=== PATIENT | female | born 1935 | race Caucasian/White ===

== ENCOUNTER 2020-08-15 14:54 | Inpatient (IN) | payer MEDICARE, OTHER, SELFPAY ==
[2020-08-15] VITALS (20 sets, daily range): BP systolic 88–127; BP diastolic 53–71; PULSE 111–126; RESP 16–32; TEMP 33.7–37.8; O2SAT 95–100; BMI 22.2
--- NOTE | 2020-08-15 15:07 | CTR_ITS ---
PROCEDURE INFORMATION: Exam: CT Head Without Contrast Exam date and time: 08/15/2020 3:14 PM Age: 85 years old Clinical indication: Altered mental status/memory loss; Confusion or disorientation; Patient HX: PT found in floor, unable to obtain history TECHNIQUE: Imaging protocol: Computed tomography of the head without contrast. Axial, coronal and sagittal reformatted images were created and reviewed. Radiation optimization: All CT scans at this facility use at least one of these dose optimization techniques: automated exposure control; mA and/or kV adjustment per patient size (includes targeted exams where dose is matched to clinical indication); or iterative reconstruction. COMPARISON: No relevant prior studies available. RADIATION DOSE METRICS: Total DLP (mGy-cm): 857.01 FINDINGS: Brain: Patchy areas of hypoattenuation in the periventricular and subcortical white matter, consistent with chronic small vessel ischemic disease. Focal, well-circumscribed hypodensity in the left basal ganglia, consistent with chronic lacunar infarction. No CT evidence of acute intracranial hemorrhage or acute territorial infarction. No significant mass effect or midline shift. Basal cisterns patent. Cerebral ventricles: Prominence of the cortical sulci, cisterns and ventricular system, consistent with cerebral and cerebellar volume loss. Bones/joints: No acute osseous abnormality. Paranasal sinuses: Minimal ethmoid and right sphenoid sinus mucosal thickening. Mastoid air cells: Grossly unremarkable. Vasculature: Calcific atherosclerotic disease in the cavernous internal carotid arteries, as well as the vertebro-basilar system. Soft tissues: Grossly unremarkable. CT/CT head wo con* [id number] IMPRESSION: 1. No CT evidence of acute intracranial pathology. 2. Additional findings, as above. Radiation Dose CTDIVOL = (mGy): DLP = 857.01 (mGy-cm)
--- NOTE | 2020-08-15 15:07 | XRR_ITS ---
PROCEDURE INFORMATION: Exam: XR Chest, 1 View Exam date and time: 08/15/2020 3:48 PM Age: 85 years old Clinical indication: Other: Confusion TECHNIQUE: Imaging protocol: XR of the chest Views: 1 view. COMPARISON: No relevant prior studies available. FINDINGS: Lungs: Unremarkable. No consolidation. Pleural space: Unremarkable. No pleural effusion. No pneumothorax. Heart/Mediastinum: Unremarkable. No cardiomegaly. Bones/joints: Unremarkable. XR/XR chest 1V portable [id number] IMPRESSION: No acute findings.
--- NOTE | 2020-08-15 15:07 | W.ED.AMS ---
HPI - Altered Mental Status General: Chief Complaint: Altered Mental Status Stated Complaint: FOUND ON FLOOR/ALOC Time Seen by Provider: 08/15/20 15:01 History of Present Illness: HPI narrative: 85 year old female in with confusion and high blood sugar. She was found on the floor of her residence by neighbors who check on her daily. She reportedly usually is ambulatory and independent. The accucheck read high. Neighbors reported yesterday she was in usual state of health. She is unable to give any history. MD complaint: altered mental status, confusion, decreased responsiveness and weakness Onset (ago): unknown Timing confirmed by: other (Neighbors) Severity: moderate Consistency of symptoms: Constant Context: unknown Associated symptoms: Reports no associated symptoms Treatments prior to arrival: glucose (HIGH) Review of Systems General: Reports: ROS unobtainable due to mental status Physical Exam Const: COMMON NORMALS: alert; negative for patient oriented x3 EXAM LIMITATIONS: altered mental status GENERAL APPEARANCE: frail appearing; not cooperative and not well kempt ORIENTATION/CONSCIOUSNESS: Yes awake and Yes confused HENMT: COMMON NORMALS: normocephalic HEAD & SCALP: normal to inspection and normocephalic MOUTH: Normal oral and palatal mucosa present Neck/C-Spine: COMMON NORMALS: no meningeal signs Chest: COMMONS NORMALS: normal inspection of the chest Resp: COMMON NORMALS: normal respiratory effort, No retractions and No use of accessory muscles Cardio: COMMON NORMALS: regular rate and regular rhythm RATE: regular rate RHYTHM: regular rhythm GI: COMMON NORMALS: Normal to inspection, nondistended, normoactive bowel sounds present AUSCULTATION: Yes normoactive bowel sounds : COMMON NORMALS: Yes no CVA tenderness BLADDER/KIDNEY EXAM: Yes no CVA tenderness Back/Pelvis: COMMON NORMALS: no CVA tenderness Neuro: COMMON NORMALS: moves all extremities; negative for patient oriented x3 SENSORIUM/ORIENTATION: Yes alert MENINGEAL SIGNS: Yes no meningeal signs Psych: APPEARANCE: No well kempt Skin: COMMON NORMALS: no rashes or lesions noted GENERAL SKIN EXAM: no rashes or lesions noted Course ED course: 85 year old female found down at home with marked elevation of blood sugars. Patient will need admitted to hospital. Will consult hospitalist. Patient with blood sugar >1000. Working on second liter of fluids and on IV insulin drip. Vital Signs: Vital signs: Vital Signs Temperature 94 F L 12/23/20 16:01 Pulse Rate 113 H 08/15/20 17:01 Respiratory Rate 22 H 08/15/20 17:01 Blood Pressure 127/63 08/15/20 17:01 Pulse Oximetry 96 08/15/20 17:01 MDM - Altered Mental Status MDM Narrative: Medical decision making narrative: 85 year old female in with confusion and high blood sugar after being found confused on the floor of her house with the duration of time unknown but probably less than 24-36 hours. The patient is unable to give any history. Will perform complete and thorough work up including labs and radiology. Serial re-examinations to be performed - push fluids for now. Lab Data: Labs: Lab Results 08/15/20 08/15/20 08/15/20 Range/Units 16:03 16:16 16:25 WBC 20.3 H (4.0-10.0) 10^3/ uL RBC 5.17 (4.1-5.3) 10^6/u L Hgb 15.6 H (11.5-15.3) g/dL Hct 52.9 H (37.0-47.0) % MCV 102.3 H (81-99) fL MCH 30.2 (28.0-34.0) pg MCHC 29.5 L (30.0-36.0) g/dL RDW 13.9 (12.1-15.1) % Plt Count 368 (130-400) 10^3/c mm MPV 11.3 H (7.4-10.4) fL Neut % (Auto) 84.7 % Lymph % (Auto) 6.0 % [place] % (Auto) 8.0 % Eos % (Auto) 0.0 % Baso % (Auto) 0.1 % Neut # (Auto) 17.16 H (1.8-7.7) 10^3/u L Lymph # (Auto) 1.2 (0.8-4.8) 10^3/u L [place] # (Auto) 1.6 H (0.2-0.9) 10^3/u L Eos # (Auto) 0.0 (0.0-0.8) 10^3/u L Baso # (Auto) 0.0 (0.0-0.1) 10^3/u L Nucleated RBC % (a uto) 0 % Nucleated RBCs # 0.0 /100WBC Sodium 143 (136-145) mmol/L Potassium 3.7 (3.5-5.1) mmol/L Chloride 98 (98-107) mmol/L Carbon Dioxide 7 L* (22-29) mmol/L Anion Gap 41.7 H (5-19) BUN 20 (8-23) mg/dL Creatinine 1.2 H (0.5-0.9) mg/dL GFR Calculation Not Reportable Glucose 1025 H* (65-115) mg/dL POC Glucose (70-110) mg/dL Calculated Osmolal ity 350 H (285-295) mOsm/k g Lactate (0.5-2.2) mmol/L Calcium 9.2 (8.5-10.5) mg/dL Total Bilirubin 0.2 (0.15-1.2) mg/dL AST 24 (0-32) U/L ALT 30 (0-33) U/L Alkaline Phosphata se 132 H (35-105) IU/L Creatine Kinase 183 (26-192) U/L Total Protein 7.7 (6.6-8.7) g/dL Albumin 3.7 (3.5-5.2) g/dL Globulin 4.0 (1.3-4.6) g/dL TSH 0.30 (0.27-4.20) uIU/ mL Urine Color Yellow (Yellow) Urine Appearance Hazy A (CLEAR) Urine pH 5 (5-7) Ur Specific Gravit y 1.020 (1.005-1.030) Urine Protein Trace (Negative) Urine Glucose (UA) 4+ H (Normal) Urine Ketones 3+ H (Negative) Urine Blood 3+ H (Negative) Urine Nitrate Negative (Negative) Urine Bilirubin Neg (Negative) Urine Urobilinogen Norm (Negative) mg/dL Ur Leukocyte Loulou ase 2+ H (Negative) Urine RBC 10-15 H (0-2) /hpf Urine WBC >100 H (0-5) /hpf Ur Squamous Epith Cells None (0-5) /hpf Amorphous Sediment Not Reportable Urine Bacteria 2+ H (NONE) /hpf Urine Yeast 3+ H /hpf Serum Ketones Positive H (Negative) 08/15/20 08/15/20 Range/Units 16:25 17:46 WBC (4.0-10.0) 10^3/ uL RBC (4.1-5.3) 10^6/u L Hgb (11.5-15.3) g/dL Hct (37.0-47.0) % MCV (81-99) fL MCH (28.0-34.0) pg MCHC (30.0-36.0) g/dL RDW (12.1-15.1) % Plt Count (130-400) 10^3/c mm MPV (7.4-10.4) fL Neut % (Auto) % Lymph % (Auto) % [place] % (Auto) % Eos % (Auto) % Baso % (Auto) % Neut # (Auto) (1.8-7.7) 10^3/u L Lymph # (Auto) (0.8-4.8) 10^3/u L [place] # (Auto) (0.2-0.9) 10^3/u L Eos # (Auto) (0.0-0.8) 10^3/u L Baso # (Auto) (0.0-0.1) 10^3/u L Nucleated RBC % (a uto) % Nucleated RBCs # /100WBC Sodium (136-145) mmol/L Potassium (3.5-5.1) mmol/L Chloride (98-107) mmol/L Carbon Dioxide (22-29) mmol/L Anion Gap (5-19) BUN (8-23) mg/dL Creatinine (0.5-0.9) mg/dL GFR Calculation Glucose (65-115) mg/dL POC Glucose > 600 H* (70-110) mg/dL Calculated Osmolal ity (285-295) mOsm/k g Lactate 3.5 H (0.5-2.2) mmol/L Calcium (8.5-10.5) mg/dL Total Bilirubin (0.15-1.2) mg/dL AST (0-32) U/L ALT (0-33) U/L Alkaline Phosphata se (35-105) IU/L Creatine Kinase (26-192) U/L Total Protein (6.6-8.7) g/dL Albumin (3.5-5.2) g/dL Globulin (1.3-4.6) g/dL TSH (0.27-4.20) uIU/ mL Urine Color (Yellow) Urine Appearance (CLEAR) Urine pH (5-7) Ur Specific Gravit y (1.005-1.030) Urine Protein (Negative) Urine Glucose (UA) (Normal) Urine Ketones (Negative) Urine Blood (Negative) Urine Nitrate (Negative) Urine Bilirubin (Negative) Urine Urobilinogen (Negative) mg/dL Ur Leukocyte Loulou ase (Negative) Urine RBC (0-2) /hpf Urine WBC (0-5) /hpf Ur Squamous Epith Cells (0-5) /hpf Amorphous Sediment Urine Bacteria (NONE) /hpf Urine Yeast /hpf Serum Ketones (Negative) Discharge Plan Discharge Patient Disposition: Admitted As Inpatient Clinical Impression: Delirium due to general medical condition, Hyperglycemic crisis due to diabetes mellitus Altered mental status Qualifiers: Altered mental status type: delirium Qualified Code(s): R41.0 - Disorientation, unspecified Condition: Stable Coding Level of Care Code ED [employer] Attendant for Javon Fwd Exam Comprehensive
--- NOTE | 2020-08-15 15:34 | PC.NURSE ---
Patient blood glucose is HI doctor has been notified. Cleaned patient and placed her into a gown. EKG done at 1530 and shown to ER doctor
--- NOTE | 2020-08-15 15:36 | PC.NURSE ---
Patient was brought in covered in dirt and animal hair. Patient was cleaned up by myself an another ED personnel. Patient vitals were obtained after clean up. Patient's temperature rectally was 92.3. Due to temperature warming blanket was applied to patient.
[2020-08-15 16:44] LABS: Basophils % 0.1 %; Hematocrit 52.9 % (37.0-47.0); Hemoglobin 15.6 g/dL (11.5-15.3); Lymphocytes # 1.2 10^3/uL (0.8-4.8); Mean Corpuscular HGB Conc 29.5 g/dL (30.0-36.0); Mean Corpuscular Hemoglobin 30.2 pg (28.0-34.0); Mean Corpuscular Volume 102.3 fL (81-99); Mean Platelet Volume 11.3 fL (7.4-10.4); Monocytes # 1.6 10^3/uL (0.2-0.9); Neutrophils # 17.16 10^3/uL (1.8-7.7); Neutrophils % 84.7 %; Nucleated Red Blood Cells % 0 %; Platelet Count 368 10^3/cmm (130-400); Red Blood Count 5.17 10^6/uL (4.1-5.3); Red Cell Distribution Width 13.9 % (12.1-15.1); White Blood Count 20.3 10^3/uL (4.0-10.0)
[2020-08-15 16:54] LABS: Ketone (Acetest) Serum Positive (Negative)
[2020-08-15 17:02] LABS: Lactate (Lactic Acid level) 3.5 mmol/L (0.5-2.2)
[2020-08-15 17:11] LABS: Alanine Aminotransferase 30 U/L (0-33); Albumin Level 3.7 g/dL (3.5-5.2); Alkaline Phosphatase 132 IU/L (35-105); Aspartate Amino Transferase 24 U/L (0-32); Blood Urea Nitrogen 20 mg/dL (8-23); Calcium 9.2 mg/dL (8.5-10.5); Chloride 98 mmol/L (98-107); Creatine Phosphokinase 183 U/L (26-192); Sodium 143 mmol/L (136-145); Total Bilirubin 0.2 mg/dL (0.15-1.2); Total Protein 7.7 g/dL (6.6-8.7)
[2020-08-15 17:15] LABS: Slide Review Slide Review Perform
[2020-08-15 17:20] LABS: Osmolality Calculated 350 mOsm/kg (285-295)
[2020-08-15 17:27] LABS: Add Urine Microscopic? YES; Bilirubin Urine Neg (Negative); Blood Urine 3+ (Negative); Glucose Urine UA 4+ (Normal); Ketones Urine 3+ (Negative); Leukocyte Esterase Urine 2+ (Negative); Nitrate Urine Negative (Negative); Protein Urine Trace (Negative); Urine Appearance Hazy (CLEAR); Urine Color Yellow (Yellow); Urobilinogen Urine Norm (Negative); WBC Urine >100 /hpf (0-5); pH Urine 5 (5-7)
[2020-08-15 17:28] LABS: Add Urine Culture? No; Bacteria Urine 2+ /hpf
[2020-08-15 17:48] LABS: Carbon Dioxide 7 mmol/L (22-29); Glucose 1025 mg/dL (65-115)
[2020-08-15 17:49] LABS: Anion Gap 41.7 (5-19); Potassium 3.7 mmol/L (3.5-5.1)
[2020-08-15 17:49] LABS: Glucose Point of Care > 600 mg/dL (70-110)
[2020-08-15] MEDS: sodium chloride 0.9% 1,000 ML 999 ML IV ×2 (17:50→19:32)
[2020-08-15] MEDS: insulin regular-human 250 UNIT in sodium chloride 0.9% 250 ML IV (17:54)
--- NOTE | 2020-08-15 18:20 | ECG_ITS ---
[facility] Test Date: 2020-08-15 Pat Name: JUAN LUIS HOLT Department: Room: Gender: Female Chief Dispatcher: : [id number] Requested By: Refugio Sanchez Order Number: [id number] Sky MD: Harry Rodriguez M.D. Measurements Intervals [place] Rate: 118 P: 69 RI: 183 QRS: -75 QRSD: 91 T: 210 QT: 385 QTc: 541 Interpretive Statements SINUS TACHYCARDIA PATTERN CONSISTENT WITH PULMONARY DISEASE INCOMPLETE RIGHT BUNDLE BRANCH BLOCK [90+ ms QRS DURATION, TERMINAL R IN V1/V2, 40+ ms S IN I/aVL/V4/V5/V6] LEFT ANTERIOR FASCICULAR BLOCK [QRS AXIS <= -45, QR IN I, RS IN II] ST DEVIATION AND MODERATE T-WAVE ABNORMALITY, CONSIDER ANTEROLATERAL ISCHEMIA [-0.1+ mV T WAVE IN V3-V6] ST DEVIATION AND MODERATE T-WAVE ABNORMALITY, CONSIDER INFERIOR ISCHEMIA [-0.1+ mV T WAVE IN II/aVF] No previous ECG available for comparison Electronically Signed On 08-15-2020 21:32:33 APIARIST by Harry Rodriguez M.D. [id number]
--- NOTE | 2020-08-15 18:34 | PM.HP ---
Providers/Chief Complaint Chief Complaint: FOUND ON FLOOR/ALOC History of Present Illness JUAN LUIS HOLT is a 85 year old female with unknown past medical history who was found by her neighbors in her house on the floor confused and lethargic. There was evidence of stool incontinence. When brought to emergency room the patient was unable to provide any history. She was found to have blood sugar level of over 1000. Hypothermic, leukocytosis. CT head did not show any acute findings. Chest x-ray was clear. However has evidence of urinary tract infection on UA. IV fluids are started. Bear hugger is started. The patient has a bag with her pills. All of them are supplements. No real medications. Apparently the patient lives alone and the neighbors occasionally check on her. It is unknown known how long the patient was down. During my evaluation the patient is morning. She is refusing my examination. Does not allow me to open her eyes. Does not allow me to examine her. She denies any pain. Does not provide any more history. Review of Systems General: Reports: ROS unobtainable due to mental status Medications/Allergies Home Medications Medication Instructions Recorded Confirmed Last Taken Type Unable to Assess 08/15/20 08/15/20 Unknown History Vitals/I&O/Wt Last Vital Signs Temp 94 F L 08/15/20 16:01 Pulse 113 H 08/15/20 17:01 Resp 22 H 08/15/20 17:01 BP 127/63 08/15/20 17:01 Pulse Ox 96 08/15/20 17:01 Weight last 48 hrs Weight 62.596 kg Physical Exam Narrative: EXAM NARRATIVE: The patient is comatose. Does not follow instructions. Minimal verbal response. Moderate distress. Skin is warm and dry. Dry mucous membranes Neck is supple. No JVD Lungs are clear. Mild tachypnea. Heart S1, S2, regular tachycardia Abdomen is soft, nontender, bowel sounds are present Extremities no edema cyanosis or calf tenderness bilaterally No facial asymmetry. She moves all of her extremities. Urinary Catheter Management^: Arizmendi: Cath Placed During This Visit: yes Urinary Catheter Date of Insertion: 08/15/20 Urinary Catheter Time of Insertion: 17:43 Data : 08/15/20 16:03 08/15/20 16:25 Other Labs: Laboratory Results WBC 20.3 10^3/uL (4.0-10.0) H 08/15/20 16:03 RBC 5.17 10^6/uL (4.1-5.3) 08/15/20 16:03 Hgb 15.6 g/dL (11.5-15.3) H 08/15/20 16:03 Hct 52.9 % (37.0-47.0) H 08/15/20 16:03 MCV 102.3 fL (81-99) H 08/15/20 16:03 MCH 30.2 pg (28.0-34.0) 08/15/20 16:03 MCHC 29.5 g/dL (30.0-36.0) L 08/15/20 16:03 RDW 13.9 % (12.1-15.1) 08/15/20 16:03 Plt Count 368 10^3/cmm (130-400) 08/15/20 16:03 MPV 11.3 fL (7.4-10.4) H 08/15/20 16:03 Neut % (Auto) 84.7 % 08/15/20 16:03 Lymph % (Auto) 6.0 % 08/15/20 16:03 [place] % (Auto) 8.0 % 08/15/20 16:03 Eos % (Auto) 0.0 % 08/15/20 16:03 Baso % (Auto) 0.1 % 08/15/20 16:03 Neut # (Auto) 17.16 10^3/uL (1.8-7.7) H 08/15/20 16:03 Lymph # (Auto) 1.2 10^3/uL (0.8-4.8) 08/15/20 16:03 [place] # (Auto) 1.6 10^3/uL (0.2-0.9) H 08/15/20 16:03 Eos # (Auto) 0.0 10^3/uL (0.0-0.8) 08/15/20 16:03 Baso # (Auto) 0.0 10^3/uL (0.0-0.1) 08/15/20 16:03 Nucleated RBC % (auto) 0 % 08/15/20 16:03 Nucleated RBCs # 0.0 /100WBC 08/15/20 16:03 Sodium 143 mmol/L (136-145) 08/15/20 16:25 Potassium 3.7 mmol/L (3.5-5.1) 08/15/20 16:25 Chloride 98 mmol/L (98-107) 08/15/20 16:25 Carbon Dioxide 7 mmol/L (22-29) L* 08/15/20 16:25 Anion Gap 41.7 (5-19) H 08/15/20 16:25 BUN 20 mg/dL (8-23) 08/15/20 16:25 Creatinine 1.2 mg/dL (0.5-0.9) H 08/15/20 16:25 GFR Calculation Not Reportable 08/15/20 16:25 Glucose 1025 mg/dL (65-115) H* 08/15/20 16:25 POC Glucose > 600 mg/dL (70-110) H* 08/15/20 17:46 Calculated Osmolality 350 mOsm/kg (285-295) H 08/15/20 16:25 Lactate 3.5 mmol/L (0.5-2.2) H 08/15/20 16:25 Calcium 9.2 mg/dL (8.5-10.5) 08/15/20 16:25 Total Bilirubin 0.2 mg/dL (0.15-1.2) 08/15/20 16:25 AST 24 U/L (0-32) 08/15/20 16:25 ALT 30 U/L (0-33) 08/15/20 16:25 Alkaline Phosphatase 132 IU/L (35-105) H 08/15/20 16:25 Creatine Kinase 183 U/L (26-192) 08/15/20 16:25 Total Protein 7.7 g/dL (6.6-8.7) 08/15/20 16:25 Albumin 3.7 g/dL (3.5-5.2) 08/15/20 16:25 Globulin 4.0 g/dL (1.3-4.6) 08/15/20 16:25 TSH 0.30 uIU/mL (0.27-4.20) 08/15/20 16:25 Urine Color Yellow (Yellow) 08/15/20 16:16 Urine Appearance Hazy (CLEAR) A 08/15/20 16:16 Urine pH 5 (5-7) 08/15/20 16:16 Ur Specific [place] 1.020 (1.005-1.030) 08/15/20 16:16 Urine Protein Trace (Negative) 08/15/20 16:16 Urine Glucose (UA) 4+ (Normal) H 08/15/20 16:16 Urine Ketones 3+ (Negative) H 08/15/20 16:16 Urine Blood 3+ (Negative) H 08/15/20 16:16 Urine Nitrate Negative (Negative) 08/15/20 16:16 Urine Bilirubin Neg (Negative) 08/15/20 16:16 Urine Urobilinogen Norm mg/dL (Negative) 08/15/20 16:16 Ur Leukocyte Esterase 2+ (Negative) H 08/15/20 16:16 Urine RBC 10-15 /hpf (0-2) H 08/15/20 16:16 Urine WBC >100 /hpf (0-5) H 08/15/20 16:16 Ur Squamous Epith Cells None /hpf (0-5) 08/15/20 16:16 Amorphous Sediment Not Reportable 08/15/20 16:16 Urine Bacteria 2+ /hpf (NONE) H 08/15/20 16:16 Urine Yeast 3+ /hpf H 08/15/20 16:16 Serum Ketones Positive (Negative) H 08/15/20 16:25 Impressions Chest X-Ray 08/15/20 15:07 IMPRESSION: No acute findings. Head CT 08/15/20 15:07 IMPRESSION: 1. No CT evidence of acute intracranial pathology. 2. Additional findings, as above. Radiation Dose CTDIVOL = (mGy): DLP = 857.01 (mGy-cm) Micro: Microbiology 08/15/20 16:03 Blood Culture - Preliminary Blood SPECIMEN COLLECTED 08/15/20 16:25 Blood Culture - Preliminary Blood SPECIMEN COLLECTED A&P Additional A&P Information 85-year-old female with unknown past medical history who is brought to emergency room due to altered mental status. She was found by her neighbors unresponsive on the floor. She has DKA, severe sepsis probably secondary to UTI with associated acute kidney injury. Acute metabolic encephalopathy secondary to #2 and 3. DKA. It is unknown if the patient has history of diabetes. However it does not seem that she takes any diabetes medications. She will be admitted to ICU. We will start aggressive IV fluid management and IV insulin drip. We will check her chemistry panel and magnesium level every 4 hours and adjust the fluids and electrolytes. Will need to be careful to monitor for any possible fluid overload. Severe sepsis probably secondary to UTI. Blood cultures are taken. Will order urine culture. We will start the patient on vancomycin and imipenem. We will adjust antibiotics based on the culture results. We will check her second lactic acid level. We will continue IV fluids. We will adjust the rate depending on vital signs, clinical changes and respiratory function. DVT prophylaxis. Heparin. GI prophylaxis famotidine. Critical care time spent on this encounter is 45 minutes Attestations Medical Necessity Statement*: The patient is being admitted in critical condition to ICU. I expect that she will spend more than 2 midnights in the hospital. Coding Level of Care Code Acute Accountant Supervisor for Javon Balderas
[2020-08-15 18:57] LABS: Albumin Level 3.7 g/dL (3.5-5.2); Blood Urea Nitrogen 20 mg/dL (8-23); Calcium 9.5 mg/dL (8.5-10.5); Chloride 97 mmol/L (98-107); Magnesium 2.8 mg/dL (1.7-2.3); Phosphorus 6.1 mg/dL (2.5-4.5); Sodium 141 mmol/L (136-145)
[2020-08-15 19:04] LABS: Anion Gap 43.9 (5-19); Carbon Dioxide 4 mmol/L (22-29); Potassium 3.9 mmol/L (3.5-5.1)
[2020-08-15 19:07] LABS: Glucose 962 mg/dL (65-115)
--- NOTE | 2020-08-15 19:17 | ECG_ITS ---
[facility] Test Date: 2020-08-15 Pat Name: JUAN LUIS HOLT Department: Room: 279 Gender: Female Paper Maker: : 1935 Requested By: Lukasz Mar Order Number: [id number] Sky MD: Harry Rodriguez M.D. Measurements Intervals [place] Rate: 113 P: 61 DE: 190 QRS: -78 QRSD: 92 T: 222 QT: 384 QTc: 528 Interpretive Statements SINUS TACHYCARDIA RIGHT ATRIAL ENLARGEMENT [0.3mV P WAVE] LEFT ATRIAL ENLARGEMENT [-0.15mV P WAVE IN V1/V2] PATTERN CONSISTENT WITH PULMONARY DISEASE INCOMPLETE RIGHT BUNDLE BRANCH BLOCK [90+ ms QRS DURATION, TERMINAL R IN V1/V2, 40+ ms S IN I/aVL/V4/V5/V6] LEFT ANTERIOR FASCICULAR BLOCK [QRS AXIS <= -45, QR IN I, RS IN II] ST DEVIATION AND MODERATE T-WAVE ABNORMALITY, CONSIDER ANTEROLATERAL ISCHEMIA [-0.1+ mV T WAVE IN V3-V6] ST DEVIATION AND MODERATE T-WAVE ABNORMALITY, CONSIDER INFERIOR ISCHEMIA [-0.1+ mV T WAVE IN II/aVF] No previous ECG available for comparison Electronically Signed On 08-15-2020 21:32:12 SHAMPOO ASSISTANT by Harry Rodriguez M.D. [id number]
[2020-08-15] MEDS: famotidine 20 mg/2 mL INJ IVP (19:32)
[2020-08-15] MEDS: heparin 5,000 unit/mL INJ 1 mL 5000 UNIT SUBCUT (19:33)
--- NOTE | 2020-08-15 19:40 | PC.NURSE ---
Attempt to call report. Loyd to Viviana reports that nurse Sivan is in room and will call back
[2020-08-15 21:56] LABS: Glucose Point of Care 468 mg/dL (70-110)
[2020-08-15 22:59] LABS: Glucose Point of Care > 600 mg/dL (70-110)
[2020-08-15 22:59] LABS: Glucose Point of Care 561 mg/dL (70-110)
[2020-08-15 23:26] LABS: Glucose Point of Care 318 mg/dL (70-110)
[2020-08-15] MEDS: potassium chloride premix 100 ML 25 MEQ IV (23:35)
[2020-08-15] MEDS: sodium bicarbonate 50 MEQ in sodium chloride 0.45% 1,000 ML 150 MEQ IV (23:36)
[2020-08-16] VITALS (170 sets, daily range): BP systolic 85–132; BP diastolic 48–87; PULSE 101–128; RESP 13–33; TEMP 36.8–37.9; O2SAT 93–98
[2020-08-16] MEDS: dextrose 5%-ns 0.45% + KCl 40 1,000 ML 100 MEQ IV (00:17)
[2020-08-16] MEDS: vancomycin 750 MG in sodium chloride 0.9% 250 ML 250 MG IV (00:49)
[2020-08-16 01:03] LABS: Albumin Level 3.1 g/dL (3.5-5.2); Anion Gap 20.6 (5-19); Blood Urea Nitrogen 18 mg/dL (8-23); Calcium 8.9 mg/dL (8.5-10.5); Carbon Dioxide 15 mmol/L (22-29); Chloride 120 mmol/L (98-107); Glucose 377 mg/dL (65-115); Magnesium 2.2 mg/dL (1.7-2.3); Osmolality Calculated 331 mOsm/kg (285-295); Phosphorus 1.1 mg/dL (2.5-4.5); Potassium 3.6 mmol/L (3.5-5.1); Sodium 152 mmol/L (136-145)
[2020-08-16 01:07] LABS: Glucose Point of Care 272 mg/dL (70-110)
[2020-08-16 01:07] LABS: Glucose Point of Care 298 mg/dL (70-110)
--- NOTE | 2020-08-16 01:38 | PC.NURSE ---
DEMPSEY Dempsey placed in ER. Time and details unknown, but dempsey is in place and draining tea colored urine.
[2020-08-16 02:25] LABS: Glucose Point of Care 261 mg/dL (70-110)
[2020-08-16 03:36] LABS: Glucose Point of Care 214 mg/dL (70-110)
--- NOTE | 2020-08-16 04:06 | PC.NURSE ---
ASSUMING CARE Report received from JENNIFER Ordaz in ED. Patient brought from ED by RN and accompanied by scribe and 1:1 sitter. Patient on insulin gtt at 8 units/hour and NS at 200 mL/hour. Patient not alert and oriented and attempting to punch and kick staff. Patient verbally redirected, but unable to comprehend direction. Patient came down on bear hugger for temp reported at 96.0. Temperature checked upon arrival and 99.0, so bear hugger removed. Patient given heparin and pepcid by ER nurse and last blood sugar reported at 561.
--- NOTE | 2020-08-16 04:12 | PC.NURSE ---
NEURO STATUS Patient continues to remain not alert and oriented to person, place, time, or situation. When interacting with patient, patient attempts to kick and hit. Dr. Vora gave order for nonviolent medical restraints shortly after patient arrived to unit. When interacting patient uses profanity and is still unable to be verbally redirected.
--- NOTE | 2020-08-16 04:14 | PC.NURSE ---
BLOOD SUGAR Per Dr. Vora, patient to be started on a one time 40 mEq K-rider, sodium bicarbonate 50 mEq at 150 mL/hour, and D51/2NS with 40 mEq of potassium at 100 mL/hour. Physician asked if lactic and ABG needed to be done, no orders at this time.
[2020-08-16 04:34] LABS: Glucose Point of Care 236 mg/dL (70-110)
--- NOTE | 2020-08-16 04:36 | PC.NURSE ---
EYE OPENING Patient has began to become more restless and has been opening eyes to voice/verbal commands at times.
[2020-08-16 05:00] LABS: Basophils # 0.1 10^3/uL (0.0-0.1); Basophils % 0.6 %; Eosinophils % 0.1 %; Hematocrit 42.9 % (37.0-47.0); Hemoglobin 14.1 g/dL (11.5-15.3); Lymphocytes # 1.1 10^3/uL (0.8-4.8); Mean Corpuscular HGB Conc 32.9 g/dL (30.0-36.0); Mean Corpuscular Hemoglobin 30.1 pg (28.0-34.0); Mean Corpuscular Volume 91.5 fL (81-99); Monocytes # 1.3 10^3/uL (0.2-0.9); Monocytes % 8.3 %; Neutrophils # 12.84 10^3/uL (1.8-7.7); Neutrophils % 83.4 %; Nucleated Red Blood Cells % 0 %; Platelet Count 350 10^3/cmm (130-400); Red Blood Count 4.69 10^6/uL (4.1-5.3); White Blood Count 15.4 10^3/uL (4.0-10.0)
[2020-08-16 05:33] LABS: Glucose Point of Care 165 mg/dL (70-110)
[2020-08-16 05:37] LABS: Albumin Level 3.3 g/dL (3.5-5.2); Anion Gap 15.8 (5-19); Blood Urea Nitrogen 17 mg/dL (8-23); Calcium 8.7 mg/dL (8.5-10.5); Carbon Dioxide 20 mmol/L (22-29); Chloride 122 mmol/L (98-107); Glucose 222 mg/dL (65-115); Osmolality Calculated 326 mOsm/kg (285-295); Potassium 3.8 mmol/L (3.5-5.1); Sodium 154 mmol/L (136-145)
[2020-08-16 06:05] LABS: Phosphorus 0.5 mg/dL (2.5-4.5)
[2020-08-16 06:31] LABS: Glucose Point of Care 139 mg/dL (70-110)
--- NOTE | 2020-08-16 06:40 | PC.NURSE ---
SHIFT SUMMARY Dr. Vora notified of anion gap closing at 15.8 and critical phosporus of 0.5. Physician put in order for ACHS accu checks, novolog with meals and at bedtime, 10 units lantus at bedtime with first dose now. Insulin gtt shut off per Dr. Vora, D5 1/2 NS with 40 K shut off and sodium bicarbonate shut off. NS started at 75 mL/hour. 1,000 mL dark tea colored urine output. Patient is more alert this morning, but still not oriented to anything, doesnt carry on conversations or follow commands yet. No open areas to body, redness to sacrum, bruise to right side of heard, bilateral bruising to eyes, and facial swelling. Head CT done in ER.
[2020-08-16] MEDS: insulin glargine 100 units/1 mL 10 UNIT SUBCUT ×2 (07:25→20:33)
[2020-08-16] MEDS: sodium chloride 0.9% 1,000 ML 75 ML IV (07:25)
[2020-08-16 07:34] LABS: Estmated Average Glucose 404; Hemoglobin A1C 15.7 % (4.0-6.0)
[2020-08-16 08:39] LABS: Glucose Point of Care 209 mg/dL (70-110)
[2020-08-16] MEDS: heparin 5,000 unit/mL INJ 1 mL 5000 UNIT SUBCUT ×2 (08:39→20:13)
[2020-08-16] MEDS: famotidine 20 mg/2 mL INJ IVP ×2 (08:39→20:13)
[2020-08-16 08:50] LABS: Albumin Level 2.9 g/dL (3.5-5.2); Anion Gap 16.3 (5-19); Blood Urea Nitrogen 16 mg/dL (8-23); Calcium 8.6 mg/dL (8.5-10.5); Carbon Dioxide 17 mmol/L (22-29); Chloride 121 mmol/L (98-107); Creatine Phosphokinase 178 U/L (26-192); Glucose 190 mg/dL (65-115); Osmolality Calculated 316 mOsm/kg (285-295); Phosphorus 1.5 mg/dL (2.5-4.5); Potassium 4.3 mmol/L (3.5-5.1); Sodium 150 mmol/L (136-145)
[2020-08-16 11:57] LABS: Glucose Point of Care 244 mg/dL (70-110)
--- NOTE | 2020-08-16 12:16 | P.PN_ITS ---
Subjective Subjective: Interval history: is still encephalopathic.Not answering questions for me. Anion gap is closed. She was transitioned to Lantus as well as sliding scale insulin. She is still remain tachycardic, has low-grade temperature ( 100.2). She has maintained a fairly good map on IV fluids, is currently saturating well on room air. Medications: Reviewed: Yes Vitals/I&O/Wt Last Vital Signs Temp 98.5 F 08/16/20 07:00 Pulse 113 H 08/16/20 12:00 Resp 20 H 08/16/20 12:00 BP 121/60 08/16/20 12:00 Pulse Ox 95 08/16/20 12:00 08/15/20 08/16/20 08/16/20 22:59 06:59 14:59 Intake Total 550 / 550 Output Total 1000 / 1000 Balance -450 / -450 Weight last 48 hrs Weight 51.573 kg Weight 62.596 kg Physical Exam 2 HENMT: COMMON NORMALS: normocephalic and atraumatic HEAD & SCALP: normocephalic and atraumatic Chest: COMMONS NORMALS: normal inspection of the chest CHEST: Yes Symmetrical chest wall rise Resp: COMMON NORMALS: normal respiratory effort, No retractions and clear to auscultation bilaterally EFFORT & INSPECTION: Yes symmetric chest movement AUSCULTATION: clear to auscultation bilaterally Cardio: COMMON NORMALS: regular rhythm, S1 normal heart sound present, S2 normal heart sound present and Peripheral pulses 2+ throughout RHYTHM: regular rhythm HEART SOUNDS: S1 normal heart sound present and S2 normal heart sound present PERIPHERAL PULSES: Peripheral pulses 2+ throughout OTHER: Sinus Tachycardia. GI: COMMON NORMALS: Normal to inspection, nondistended, normoactive bowel sounds present, Soft to palpation, non-tender, No hepatosplenomegaly present and no masses AUSCULTATION: Yes normoactive bowel sounds PALPATION: Yes Soft to palpation and Yes No hepatosplenomegaly present RECTAL EXAM: deferred Extremity: COMMON NORMALS: no clubbing, cyanosis or edema and no pedal edema Urinary Catheter Management^: Arizmendi: Cath Placed During This Visit: yes Reason for Continuing Indwelling Catheter: Accurate Measurement of Urinary Output in Critically Ill Patients Urinary Catheter Date of Insertion: 08/15/20 Urinary Catheter Time of Insertion: 17:43 Data : 08/16/20 04:17 08/16/20 16:00 Micro: Microbiology 08/15/20 16:03 Blood Culture - Preliminary Blood SPECIMEN COLLECTED 08/15/20 16:25 Blood Culture - Preliminary Blood SPECIMEN COLLECTED A&P Additional A&P Information 85-year-old female with unknown past medical history who is brought to emergency room due to altered mental status. She was found by her neighbors unresponsive on the floor. She has DKA, severe sepsis probably secondary to UTI with associated acute kidney injury. Acute metabolic encephalopathy secondary to #2 and 3. DKA. It is unknown if the patient has history of diabetes. However it does not seem that she takes any diabetes medications. She will be admitted to ICU. We will start aggressive IV fluid management and IV insulin drip. We will check her chemistry panel and magnesium level every 4 hours and adjust the fluids and electrolytes. Will need to be careful to monitor for any possible fluid overload. Severe sepsis probably secondary to UTI. Blood cultures are taken. Will order urine culture. We will start the patient on vancomycin and imipenem. We will adjust antibiotics based on the culture results. We will check her second lactic acid level. We will continue IV fluids. We will adjust the rate depending on vital signs, clinical changes and respiratory function. DVT prophylaxis. Heparin. GI prophylaxis famotidine. Critical care time spent on this encounter is 45 minutes Attestations Medical Necessity Statement*: Patient needs to be in hospital for the management of Ac metabolic encephalopathy as well as sepsis 2/2 to uti Coding Level of Care Code Acute [employer] for Javon Fwd Exam Detailed
[2020-08-16] MEDS: sodium chloride 0.45% 1,000 ML 100 ML IV (12:27)
[2020-08-16 14:10] LABS: SARS Covid-2 Antigen Negative (Negative)
[2020-08-16 16:33] LABS: Glucose Point of Care 191 mg/dL (70-110)
[2020-08-16 16:38] LABS: Anion Gap 14.7 (5-19); Blood Urea Nitrogen 16 mg/dL (8-23); Calcium 8.7 mg/dL (8.5-10.5); Carbon Dioxide 18 mmol/L (22-29); Chloride 125 mmol/L (98-107); Glucose 184 mg/dL (65-115); Osmolality Calculated 324 mOsm/kg (285-295); Potassium 3.7 mmol/L (3.5-5.1); Sodium 154 mmol/L (136-145)
[2020-08-16] MEDS: phosphorus 250 mg Tablet PO (17:25)
[2020-08-16] MEDS: sodium chloride 0.45% 1,000 ML 125 ML IV (20:12)
[2020-08-17] VITALS (93 sets, daily range): BP systolic 106–188; BP diastolic 50–105; PULSE 97–154; RESP 13–30; TEMP 36.5–36.9; O2SAT 85–96; BMI 19.4
[2020-08-17] MEDS: vancomycin 750 MG in sodium chloride 0.9% 250 ML 250 MG IV (00:37)
[2020-08-17] MEDS: sodium chloride 0.45% 1,000 ML 125 ML IV (06:07)
[2020-08-17 07:05] LABS: Anion Gap 17.3 (5-19); Blood Urea Nitrogen 11 mg/dL (8-23); Calcium 7.9 mg/dL (8.5-10.5); Carbon Dioxide 17 mmol/L (22-29); Chloride 112 mmol/L (98-107); Glucose 288 mg/dL (65-115); Osmolality Calculated 306 mOsm/kg (285-295); Potassium 3.3 mmol/L (3.5-5.1); Sodium 143 mmol/L (136-145)
[2020-08-17 07:16] LABS: Glucose Point of Care 247 mg/dL (70-110)
[2020-08-17] MEDS: famotidine 20 mg/2 mL INJ IVP ×2 (07:33→20:45)
[2020-08-17] MEDS: heparin 5,000 unit/mL INJ 1 mL 5000 UNIT SUBCUT ×2 (07:33→20:45)
[2020-08-17] MEDS: phosphorus 250 mg Tablet PO ×2 (08:17→17:26)
--- NOTE | 2020-08-17 09:47 | PC.CHAP ---
Pastoral Care Encounter/Spiritual Assessment Type of Contact [] Declined lumber scaler visit [] Patient/Family/Request visit [] Outpatient visit [] Follow-up visit [] Physician referral [] Code/Alert [] Routine visit [] Staff referral [] Actively dying [] Patient sleeping [] Family support [] [] Out of room [] Palliative care [] [] Receiving care in room [] Pre-surgical visit [] Trauma [] Long length of stay [x] ICU visit [] Other: Relational/Emotional Strength [] Patient feels connected with others/family/visitors/staff [] Distress [] Loneliness/isolation [] Abandonment Spirituality of Patient [] Person of Jeanine [] Attends Congregational of their Jeanine [] Believes in Prayer [] Reads Bible or Mu-Ism materials [] There are Spiritual issues to be addressed Air Conditioning [employer] Interventions [x] Prayer [] Active listening [] Non-anxious presence [] Spiritual/emotional support [] Crisis/trauma care [] Spiritual counseling [] Bereavement support [] Provided bereavement packet [] Provided Bible/devotional materials [] Provided toy/stuffed animal, coloring book to patient or family member [] Provided Communion [] Anointing/[place] [] Salvation [x] Completed spiritual assessment [] Other: Impact on Illness or Injury [] Angry [] Fearful [] Anxious [] Often cries [] Exhaustion [] Unable to work [] Unable to attend jehovah's witness [] Unable to walk/stand [] Unable to read [] Unable to drive [] Unable to eat/drink [] Unable to sleep [] Unable to be with family [] Patient intubated [] Other: Summary Time spent with patient
--- NOTE | 2020-08-17 10:56 | PC.NURSE ---
pt severely confused and agitated when attempting to put hose on .. left off at this time
[2020-08-17 11:59] LABS: Glucose Point of Care 251 mg/dL (70-110)
--- NOTE | 2020-08-17 12:03 | USCV_ITS ---
JUAN LUIS HOLT Age: 85 Gender: F : 1935 Exam Date: 08/17/2020 13:24 Ordering Phys: Jozef Boyd MD Technologist: Stephanie Vee Exam Location: [facility] – [place] Indication: CHEST TIGHTNESS BP: 157 / 70 HR: 112 Rhythm: Sinus Technical Quality: Adequate MEASUREMENTS (Male / Female) Normal Values 2D ECHO LV Diastolic Diameter PLAX 2.8 cm 4.2 - 5.9 / 3.9 - 5.3 cm LV Systolic Diameter PLAX 2.4 cm LV Chamber Size 3.0 cm IVS Diastolic Thickness 0.9 cm 0.6 - 1.0 / 0.6 - 0.9 cm IVS Systolic Thickness 1.3 cm LVPW Diastolic Thickness 1.1 cm 0.6 - 1.0 / 0.6 - 0.9 cm LVPW Systolic Thickness 1.6 cm RV Chamber Size 2.3 cm LVOT Diameter 2.0 cm LV Ejection Fraction 2D Teich 23.5 % LV Ejection Fraction MOD 2C 51.9 % LV Ejection Fraction 2C AL 52.1 % LA Diameter 3.1 cm LA Width 2.7 cm LA Height 2.8 cm RA Width 2.3 cm RA Height 2.9 cm Aorta at Sinotubular Diameter 2.7 cm M-MODE LV Diastolic Diameter MM 3.8 cm 4.2 - 5.9 / 3.9 - 5.3 cm LV Systolic Diameter MM 2.8 cm LV Ejection Fraction MM Teich 53.5 % IVS Diastolic Thickness MM 0.9 cm 0.6 - 1.0 / 0.6 - 0.9 cm IVS Systolic Thickness MM 1.3 cm LVPW Diastolic Thickness MM 0.8 cm 0.6 - 1.0 / 0.6 - 0.9 cm LVPW Systolic Thickness MM 1.4 cm RV Diastolic Diameter MM 1.2 cm Aortic Annulus Diameter 3.0 cm LA Ao Ratio MM 1.3 MV E Point Septal Separation 0.5 cm DOPPLER AV Peak Velocity 95.0 cm/s LVOT Peak Velocity 75.0 cm/s AV Area Cont Eq vti 1.7 cm squared AV Area Cont Eq pk 2.6 cm squared MV Area PHT 8.5 cm squared Mitral E to A Ratio 0.8 MV E' Velocity 46.0 cm/s Mitral E to MV E' Ratio 14.4 Mitral E to LV E' Lateral Ratio 11.5 Mitral E to LV E' Septal Ratio 19.3 TR Peak Velocity 100.0 cm/s TR Peak Gradient 4.0 mmHg TR Mean Velocity 131.0 cm/s TR Mean Gradient 7.6 mmHg TR Velocity Time Integral 43.0 cm TV Peak E Velocity 64.0 cm/s Right Atrial Pressure 3.0 mmHg Pulmonary Artery Systolic Pressu 7.0 mmHg PV Peak Velocity 57.0 cm/s RV Acceleration Time 0.3 s RV Ejection Time 0.5 s RV AcT/ET 0.6 FINDINGS Left Ventricle Limited quality study. Normal left ventricular size. Grossly LV systolic function is moderately reduced. Regional wall motion abnormalities cannot be assessed because of limited visualization. Grade 1 diastolic dysfunction is seen. Right Ventricle Grossly normal Right Atrium The right atrium is normal in size. Left Atrium The left atrium is normal in size. Mitral Valve Mitral annular calcification is seen. Mild mitral regurgitation is present. Aortic Valve Aortic valve is not well-visualized. No significant aortic regurgitation or stenosis is present. Tricuspid Valve Not well-visualized. Insufficient TR jet to calculate RVSP. Pulmonic Valve Not well-visualized. Pericardium Normal pericardium without effusion. Aorta Normal ascending aorta dimension. CONCLUSIONS This is a technically poor quality study. LV systolic function is grossly moderately reduced. Regional wall motion abnormalities cannot be assessed because of limited visualization. Grade 1 diastolic dysfunction is present. Valvular structures are not well visualized however no significant valvular abnormalities seen. Mild mitral regurgitation is noted. No comparison studies are available. Jeb Moser MD (Electronically Signed) Final Date: 17 August 2020 17:46 S
[2020-08-17] MEDS: lisinopril 20 mg Tablet PO (12:49)
[2020-08-17 17:06] LABS: Glucose Point of Care 263 mg/dL (70-110)
--- NOTE | 2020-08-17 18:35 | P.PN_ITS ---
Subjective Subjective: Interval history: is felling better.Upon further asking she is complaining of longstanding Chest tightness as well as SOB with minimal exertion. She deny any other complain. Vitals and labs have reviewed. Medications: Reviewed: Yes Vitals/I&O/Wt Last Vital Signs Temp 97.7 F 08/17/20 10:00 Pulse 104 H 08/17/20 18:00 Resp 26 H 08/17/20 18:00 BP 121/62 08/17/20 18:00 Pulse Ox 94 08/17/20 08:00 08/17/20 08/17/20 08/17/20 06:59 14:59 22:59 Intake Total 1600 / 4255 650 / 650 300 / 950 Output Total 400 / 900 1400 / 1400 900 / 2300 Balance 1200 / 3355 -750 / -750 -600 / -1350 Weight last 48 hrs Weight 54.573 kg Weight 51.573 kg Physical Exam Const: COMMON NORMALS: patient oriented x3 HENMT: COMMON NORMALS: normocephalic and atraumatic HEAD & SCALP: normocephalic and atraumatic Chest: CHEST: Yes Symmetrical chest wall rise Resp: COMMON NORMALS: normal respiratory effort and clear to auscultation bilaterally EFFORT & INSPECTION: Yes symmetric chest movement AUSCULT ATION: clear to auscultation bilaterally Cardio: COMMON NORMALS: regular rate, regular rhythm, S1 normal heart sound present, S2 normal heart sound present, No gallops present (Cardio), No murmurs present (Cardio), No rub (Cardio) and Peripheral pulses 2+ throughout RATE: regular rate RHYTHM: regular rhythm HEART SOUNDS: S1 normal heart sound present and S2 normal heart sound present PERIPHERAL PULSES: Peripheral pulses 2+ throughout OTHER: Sinus Tachycardia. GI: COMMON NORMALS: Normal to inspection, nondistended, normoactive bowel sounds present, Soft to palpation, non-tender, No hepatosplenomegaly present and no masses AUSCULTATION: Yes normoactive bowel sounds PALPATION: Yes Soft to palpation and Yes No hepatosplenomegaly present RECTAL EXAM: deferred Extremity: COMMON NORMALS: no clubbing, cyanosis or edema and no pedal edema Neuro: COMMON NORMALS: patient oriented x3 Urinary Catheter Management^: Arizmendi: Cath Placed During This Visit: yes Reason for Continuing Indwelling Catheter: Accurate Measurement of Urinary Output in Critically Ill Patients Urinary Catheter Date of Insertion: 08/15/20 Urinary Catheter Time of Insertion: 17:43 Data : 08/16/20 04:17 08/17/20 06:25 Micro: Microbiology 08/15/20 16:16 Urine Culture - Final Urine Catheterized 08/15/20 16:03 Blood Culture - Preliminary Blood NEGATIVE TO DATE 08/15/20 16:25 Blood Culture - Preliminary Blood NEGATIVE TO DATE A&P Additional A&P Information 85-year-old female with unknown past medical history who is brought to emergency room due to altered mental status. She was found by her neighbors unresponsive on the floor. She has DKA, severe sepsis probably secondary to UTI with assoc iated acute kidney injury. Acute metabolic encephalopathy secondary to #2 and 3.( Resolved ) DKA. ( Resolved ) It is unknown if the patient has history of diabetes. However it does not seem that she takes any diabetes medications. She will be admitted to ICU. We will start aggressive IV fluid management and IV insulin drip. We will check her chemistry panel and magnesium level every 4 hours and adjust the fluids and electrolytes. Will need to be careful to monitor for any possible fluid overload. Severe sepsis probably secondary to UTI. Blood cultures are taken. Will order urine culture. Initially on vancomycin and imipenem.Vancomcin was DC on 08/17 as initial prelim cultures have been negative. We will adjust antibiotics based on the culture results. Follow am lactic acid and procalctonin level. #SOB On exertion and chest tightness : 2D Echo: Bad quality study: LV systolic function is grossly moderately reduced. Regional wall motion abnormalities cannot be assessed because of limited visualization. Repaet Limited ECHO with Contrast DVT prophylaxis. Heparin. GI prophylaxis famotidine. Critical care time spent on this encounter is 45 minutes Attestations Medical Necessity Statement*: Patient needs be in hospital for the management of sepsis 2/2 UTI. Coding Level of Care Code Acute Surveyor [employer]graph[employer] for Javon Balderas
[2020-08-17] MEDS: insulin glargine 100 units/1 mL 10 UNIT SUBCUT (20:47)
[2020-08-17 20:56] LABS: Glucose Point of Care 131 mg/dL (70-110)
[2020-08-18] VITALS (23 sets, daily range): BP systolic 86–157; BP diastolic 47–86; PULSE 78–115; RESP 16–26; TEMP 37.1; O2SAT 92–99
[2020-08-18 05:33] LABS: Hematocrit 41.1 % (37.0-47.0); Hemoglobin 13.7 g/dL (11.5-15.3); Mean Corpuscular HGB Conc 33.3 g/dL (30.0-36.0); Mean Corpuscular Hemoglobin 30.2 pg (28.0-34.0); Mean Corpuscular Volume 90.5 fL (81-99); Mean Platelet Volume 10.6 fL (7.4-10.4); Platelet Count 267 10^3/cmm (130-400); Red Blood Count 4.54 10^6/uL (4.1-5.3); Red Cell Distribution Width 14.6 % (12.1-15.1)
[2020-08-18 06:04] LABS: Lactate (Lactic Acid level) 1.3 mmol/L (0.5-2.2)
[2020-08-18 06:10] LABS: Anion Gap 16.9 (5-19); Blood Urea Nitrogen 8 mg/dL (8-23); Calcium 7.9 mg/dL (8.5-10.5); Carbon Dioxide 22 mmol/L (22-29); Chloride 108 mmol/L (98-107); Glucose 235 mg/dL (65-115); Magnesium 1.7 mg/dL (1.7-2.3); Osmolality Calculated 304 mOsm/kg (285-295); Phosphorus 2.6 mg/dL (2.5-4.5); Sodium 144 mmol/L (136-145)
[2020-08-18 06:54] LABS: Potassium 2.9 mmol/L (3.5-5.1)
[2020-08-18 07:26] LABS: Glucose Point of Care 204 mg/dL (70-110)
[2020-08-18] MEDS: potassium chloride ER 20 mEq Tablet 80 MEQ PO (08:01)
[2020-08-18] MEDS: heparin 5,000 unit/mL INJ 1 mL 5000 UNIT SUBCUT (08:02)
[2020-08-18] MEDS: famotidine 20 mg/2 mL INJ IVP ×2 (08:02→21:27)
[2020-08-18 08:16] LABS: Absolute Eosinophils 0.1 10^3/cmm (0.0-0.7); Band Neutrophils Absolute 0.5 10^3/cmm (0.0-1.2); Eosinophils 1 %; Lymphocytes 10 %; Monocytes Absolute 0.4 10^3/cmm (0.1-0.6); Segmented Neutrophils 80 %; Total Cells Counted 100 (0-100)
[2020-08-18 08:17] LABS: Absolute Neutrophil 8.5 10^3/cmm (1.4-6.5); Platelet Estimate Normal (Normal)
[2020-08-18] MEDS: lisinopril 20 mg Tablet PO (08:33)
[2020-08-18] MEDS: phosphorus 250 mg Tablet PO (08:33)
--- NOTE | 2020-08-18 10:15 | PC.NURSE ---
incontinet of bm noted and denisha care done some confusion remains at this time up in bed am brk served
[2020-08-18 10:16] LABS: Troponin T (5th) Once 52 ng/L (0-10)
[2020-08-18 10:24] LABS: NT Pro B Type Natriuretic Pept 6706 pg/mL (0-450); Procalcitonin 0.28 ng/mL (0-0.5)
[2020-08-18 11:46] LABS: Glucose Point of Care 230 mg/dL (70-110)
[2020-08-18] MEDS: cefTRIAXone 1,000 MG in sodium chloride 0.9% (plus) 50 ML 100 MG IV (11:50)
--- NOTE | 2020-08-18 12:52 | DCPLANNER ---
IMM completed with pt on 08/18/20 @ [id number]. Copy of rights given to pt.
--- NOTE | 2020-08-18 14:13 | PM.PN ---
Subjective Subjective: Interval history: Patient is doing fine. She is tolerating diet well, she is more alert and awake,has good urine output blood pressure is better controlled. Deny any active complaint. Labs have been reviewed. Medications: Reviewed: Yes Vitals/I&O/Wt Last Vital Signs Temp 98.4 F 08/17/20 19:00 Pulse 97 08/18/20 14:00 Resp 23 H 08/18/20 14:00 BP 123/66 08/18/20 14:00 Pulse Ox 99 08/18/20 07:00 08/17/20 08/18/20 08/18/20 22:59 06:59 14:59 Intake Total 400 / 1150 800 / 800 Output Total 1650 / 3050 750 / 3800 Balance -1250 / -1900 -750 / -2650 800 / 800 Weight last 48 hrs Weight 54.431 kg Weight 54.573 kg Physical Exam Const: COMMON NORMALS: patient oriented x3 HENMT: COMMON NORMALS: normocephalic and atraumatic HEAD & SCALP: normocephalic and atraumatic Chest: CHEST: Yes Symmetrical chest wall rise Resp: COMMON NORMALS: normal respiratory effort and clear to auscultation bilaterally EFFORT & INSPECTION: Yes symmetric chest movement AUSCULTATION: clear to auscultation bilaterally Cardio: COMMON NORMALS: regular rate, regular rhythm, S1 normal heart sound present, S2 normal heart sound present, No gallops present (Cardio), No murmurs present (Cardio), No rub (Cardio) and Peripheral pulses 2+ throughout RATE: regular rate RHYTHM: regular rhythm HEART SOUNDS: S1 normal heart sound present and S2 normal heart sound present PERIPHERAL PULSES: Peripheral pulses 2+ throughout OTHER: Sinus Tachycardia. GI: COMMON NORMALS: Normal to inspection, nondistended, normoactive bowel sounds present, Soft to palpation, non-tender, No hepatosplenomegaly present and no masses AUSCULTATION: Yes normoactive bowel sounds PALPATION: Yes Soft to palpation and Yes No hepatosplenomegaly present RECTAL EXAM: deferred Extremity: COMMON NORMALS: no clubbing, cyanosis or edema and no pedal edema Neuro: COMMON NORMALS: patient oriented x3 Urinary Catheter Management^: Arizmendi: Cath Placed During This Visit: yes Reason for Continuing Indwelling Catheter: Accurate Measurement of Urinary Output in Critically Ill Patients Urinary Catheter Date of Insertion: 08/15/20 Urinary Catheter Time of Insertion: 17:43 Data : 08/18/20 04:55 08/18/20 04:55 Micro: Microbiology 08/15/20 16:16 Urine Culture - Final Urine Catheterized A&P Additional A&P Information 85-year-old female with unknown past medical history who is brought to emergency room due to altered mental status. She was found by her neighbors unresponsive on the floor. She has DKA, severe sepsis probably secondary to UTI with associated acute kidney injury. Acute metabolic encephalopathy secondary to #2 and 3.( Resolved ) DKA. ( Resolved ) It is unknown if the patient has history of diabetes. However it does not seem that she takes any diabetes medications. She will be admitted to ICU. We will start aggressive IV fluid management and IV insulin drip. We will check her chemistry panel and magnesium level every 4 hours and adjust the fluids and electrolytes. Will need to be careful to monitor for any possible fluid overload. Severe sepsis probably secondary to UTI. Blood cultures:Negative till date. urine culture: Negative procalctonin level.0.28 Lactic acid : 3.5--3--1.3 Initially on vancomycin and imipenem. Vancomcin was DC on 08/17 as initial prelim cultures have been negative. Imipeneam was discontinued on 08/18 Currently on ceftriaxone 1 gm q24h daily Hypokalemia : Serum K :2.8 .Received 80 MEQ kCL Today #SOB On exertion and chest tightness : 2D Echo: Bad quality study: LV systolic function is grossly moderately reduced. Regional wall motion abnormalities cannot be assessed because of limited visualization. Repaet Limited ECHO with Contrast. JIM :Resolved DVT prophylaxis. Lovenox 40 mg sc daily GI prophylaxis famotidine. Critical care time spent on this encounter is 45 minutes Attestations Medical Necessity Statement*: Patient needs to be in hospital for the management of sepsis 2/2 UTI. Coding Level of Care Code Acute Lean Manufacturing Coordinator for Javon Balderas
[2020-08-18] MEDS: perflutren protein-a microsphr 0.22 mg/mL SDV 3 mL IV (14:52)
[2020-08-18 16:39] LABS: Glucose Point of Care 178 mg/dL (70-110)
--- NOTE | 2020-08-18 18:39 | USCV_ITS ---
JUAN LUIS HOLT Age: 85 Gender: F : 1935 Exam Date: 08/18/2020 14:35 Ordering Phys: Jozef Boyd MD Technologist: Stephanie Vee [place] [facility] [place]: Worsening shortness of breath BP: 123 / 66 HR: Rhythm: Sinus Technical Quality: MEASUREMENTS (Male / Female) Normal Values 2D ECHO LV Ejection Fraction MOD 2C 50.1 % LV Ejection Fraction 2C AL 50.2 % FINDINGS Left Ventricle Echocardiogram performed to assess LV systolic function. LV systolic function is moderately reduced with EF of 35 to 40%. Mild to moderate global hypokinesis is present. No LV thrombus is present. Right Ventricle Right Atrium Left Atrium Mitral Valve Aortic Valve Tricuspid Valve Pulmonic Valve Pericardium Aorta CONCLUSIONS This is a limited echocardiogram with contrast to assess LV systolic function. LV systolic function is moderately reduced with EF of 35 to 40%. Mild to moderate global hypokinesis is present. No LV thrombus is seen. Compared to prior echocardiogram from 08/17/2020, no significant changes are noted. Jeb Moser MD (Electronically Signed) Final Date: 18 August 2020 16:09 S
[2020-08-18 21:00] LABS: Glucose Point of Care 195 mg/dL (70-110)
[2020-08-18] MEDS: insulin glargine 100 units/1 mL 15 UNIT SUBCUT (21:28)
[2020-08-19] VITALS (15 sets, daily range): BP systolic 91–147; BP diastolic 47–113; PULSE 79–108; RESP 17–26; TEMP 36.6–37.3; O2SAT 85–96
--- NOTE | 2020-08-19 03:49 | PC.NURSE ---
Patient awake and alert this morning. Speech is clear and appropriate. Patient able to tell me she had a fall at home which resulted in her coming to the hospital and was unconscious for a couple of days. Also stated, My blood sugar was real high and I had a real bad bladder infections. Patient reports not feeling real well yet and is still very weak. Patient denies pain. Refused to be repositioned at this time stating, I am very comfortable. No other distresses observed this morning.
[2020-08-19 04:44] LABS: Hematocrit 40.3 % (37.0-47.0); Hemoglobin 13.2 g/dL (11.5-15.3); Mean Corpuscular HGB Conc 32.8 g/dL (30.0-36.0); Mean Corpuscular Hemoglobin 29.9 pg (28.0-34.0); Mean Corpuscular Volume 91.4 fL (81-99); Platelet Count 241 10^3/cmm (130-400); Red Blood Count 4.41 10^6/uL (4.1-5.3); Red Cell Distribution Width 14.8 % (12.1-15.1); White Blood Count 12.2 10^3/uL (4.0-10.0)
[2020-08-19 05:13] LABS: Anion Gap 13.4 (5-19); Blood Urea Nitrogen 10 mg/dL (8-23); Calcium 8.5 mg/dL (8.5-10.5); Carbon Dioxide 24 mmol/L (22-29); Chloride 112 mmol/L (98-107); Glucose 158 mg/dL (65-115); Magnesium 1.9 mg/dL (1.7-2.3); Osmolality Calculated 304 mOsm/kg (285-295); Potassium 3.4 mmol/L (3.5-5.1); Sodium 146 mmol/L (136-145)
--- NOTE | 2020-08-19 07:02 | PC.NURSE ---
Patient reported to RN that she feels she lost quite a bit of weight over past couple of weeks noting her favorite pair of pants was about 2 sizes to big.
[2020-08-19 07:19] LABS: Glucose Point of Care 150 mg/dL (70-110)
[2020-08-19] MEDS: famotidine 20 mg/2 mL INJ IVP ×2 (08:03→20:32)
[2020-08-19] MEDS: lisinopril 20 mg Tablet PO (08:08)
[2020-08-19] MEDS: enoxaparin 40 mg/0.4 mL Syringe SUBCUT (08:08)
[2020-08-19 08:20] LABS: Absolute Eosinophils 0.2 10^3/cmm (0.0-0.7); Absolute Segmented Neutrophil 9.6 10/cmm (1.6-7.1); Band Neutrophils Absolute 0.4 10^3/cmm (0.0-1.2); Eosinophils 2 %; Lymphocytes 13 %; Monocytes Absolute 0.4 10^3/cmm (0.1-0.6); Platelet Estimate Normal (Normal); Segmented Neutrophils 79 %; Total Cells Counted 100 (0-100)
[2020-08-19 10:47] LABS: Glucose Point of Care 248 mg/dL (70-110)
[2020-08-19] MEDS: cefTRIAXone 1,000 MG in sodium chloride 0.9% (plus) 50 ML 100 MG IV ×2 (11:57→17:27)
--- NOTE | 2020-08-19 13:07 | P.PN_ITS ---
Subjective Subjective: Interval history: is doing fine.She is complaining of weakness as well as fatigue.Do complain of SOB with minimal exertion. Glycemic control is improving. She has remained afebrile other vitals have been reviewed. Labs reviewed. Medications: Reviewed: Yes Vitals/I&O/Wt Last Vital Signs Temp 99.1 F 08/19/20 12:00 Pulse 108 H 08/19/20 12:00 Resp 18 08/19/20 12:00 BP 117/87 08/19/20 12:00 Pulse Ox 93 08/19/20 12:00 08/18/20 08/19/20 08/19/20 22:59 06:59 14:59 Intake Total 450 / 1300 222 / 222 Output Total 600 / 600 450 / 1050 200 / 200 Balance -150 / 700 -450 / 250 Weight last 48 hrs Weight 53.116 kg Weight 54.431 kg Physical Exam Const: COMMON NORMALS: patient oriented x3 HENMT: COMMON NORMALS: normocephalic and atraumatic HEAD & SCALP: normoceph alic and atraumatic Chest: CHEST: Yes Symmetrical chest wall rise Resp: COMMON NORMALS: normal respiratory effort and clear to auscultation bilaterally AUSCULTATION: clear to auscultation bilaterally Cardio: COMMON NORMALS: regular rate, regular rhythm, S1 normal heart sound present and S2 normal heart sound present RATE: regular rate RHYTHM: regular rhythm HEART SOUNDS: S1 normal heart sound present and S2 normal heart sound present GI: COMMON NORMALS: Normal to inspection, nondistended, normoactive bowel sounds present, Soft to palpation, non-tender, No hepatosplenomegaly present and no masses AUSCULTATION: Yes normoactive bowel sounds PALPATION: Yes Soft to palpation and Yes No hepatosplenomegaly present RECTAL EXAM: deferred Extremity: COMMON NORMALS: no clubbing, cyanosis or edema and no pedal edema Neuro: COMMON NORMALS: patient oriented x3 Urinary Catheter Management^: Arizmendi: Cath Placed During This Visit: yes Reason for Continuing Indwelling Catheter: Accurate Measurement of Urinary Out put in Critically Ill Patients Urinary Catheter Date of Insertion: 08/15/20 Urinary Catheter Time of Insertion: 17:43 Data : 08/19/20 03:39 08/19/20 03:39 A&P Assessment and plan (1) Sepsis: Status: Acute (2) UTI (urinary tract infection): Status: Acute (3) Acute encephalopathy: Status: Acute (4) DKA (diabetic ketoacidoses): Status: Acute (5) Diabetes: Status: Acute (6) Hypokalemia: Status: Acute (7) JIM (acute kidney injury): Status: Acute (8) Heart failure: Status: Acute (9) Hypernatremia: Status: Acute Additional A&P Information 85-year-old female with unknown past medical history who is brought to emergency room due to altered mental status. She was found by her neighbors unresponsive on the floor. She has DKA, severe sepsis probably secondary to UTI with associated acute kidney injury. #Acute metabolic encephalopathy secondary to #2 and 3.( Resolved ) #DKA. ( Resolved ) It is unknown if the patient has history of diabetes. However it does not seem that she takes any diabetes medications. She will be admitted to ICU. We will start aggressive IV fluid management and IV insulin drip. We will check her chemistry panel and magnesium level every 4 hours and adjust the fluids and electrolytes. Will need to be careful to monitor for any possible fluid overload. # Uncontrolled DM: Lantus 15 U SC DAILY BEDTIME Aspart 7 Us Premeal LDSSI #Severe sepsis probably secondary to UTI. Blood cultures:Negative till date. urine culture: Negative procalctonin level.0.28 Lactic acid : 3.5--3--1.3 Initially on vancomycin and imipenem. Vancomcin was DC on 08/17 as initial prelim cultures have been negative. Imipeneam was discontinued on 08/18 Currently on ceftriaxone 1 gm q124h daily Hypokalemia : Serum K :2.8 .Received 80 MEQ kCL Today #SOB On exertion and chest tightness : 2D Echo: Bad quality study: LV systolic function is grossly moderately reduced. Regional wall motion abnormalities cannot be assessed because of limited visualization. Repaet Limited ECHO with Contrast.LV systolic function is moderately reduced with EF of 35 to 40%.Mild to moderate global hypokinesis is present. No LV thrombus is seen. Consult cardiology ( Outpatient V/S Inpatient ) JIM :Resolved DVT prophylaxis. Lovenox 40 mg sc daily GI prophylaxis famotidine. Critical care time spent on this encounter is 45 minutes Attestations Medical Necessity Statement*: Patient needs to be in hospital for the management of sepsis, UTI. Coding Level of Care Code Acute Premises Technician for Chg Fwd Diagnoses Sepsis A41.9 UTI (urinary tract infection) N39.0 Acute encephalopathy G93.40 DKA (diabetic ketoacidoses) E11.10 Diabetes E11.9 Hypokalemia E87.6 JIM (acute kidney injury) N17.9 Heart failure I50.9 Hypernatremia E87.0
[2020-08-19 16:49] LABS: Glucose Point of Care 219 mg/dL (70-110)
[2020-08-19 20:31] LABS: Glucose Point of Care 286 mg/dL (70-110)
[2020-08-19] MEDS: insulin glargine 100 units/1 mL 15 UNIT SUBCUT (20:33)
[2020-08-20] VITALS (13 sets, daily range): BP systolic 92–150; BP diastolic 64–88; PULSE 75–100; RESP 6–20; TEMP 36.7–36.9; O2SAT 95
[2020-08-20 06:48] LABS: Glucose Point of Care 166 mg/dL (70-110)
[2020-08-20] MEDS: famotidine 20 mg Tablet PO ×2 (08:22→17:49)
[2020-08-20] MEDS: enoxaparin 40 mg/0.4 mL Syringe SUBCUT (08:22)
[2020-08-20] MEDS: lisinopril 20 mg Tablet PO (08:22)
[2020-08-20] MEDS: cefTRIAXone 1,000 MG in sodium chloride 0.9% (plus) 50 ML 100 MG IV ×2 (08:22→17:49)
--- NOTE | 2020-08-20 09:15 | PC.SOCIAL ---
IMM Updated Updated pt on Pg 2 IMM. Provided pt a copy. No questions voiced. Signed, dated, & timed copy in chart.
[2020-08-20 11:35] LABS: Glucose Point of Care 318 mg/dL (70-110)
[2020-08-20 12:35] LABS: Hematocrit 41.2 % (37.0-47.0); Hemoglobin 13.3 g/dL (11.5-15.3); Mean Corpuscular HGB Conc 32.3 g/dL (30.0-36.0); Mean Corpuscular Hemoglobin 30.2 pg (28.0-34.0); Mean Corpuscular Volume 93.4 fL (81-99); Mean Platelet Volume 11.3 fL (7.4-10.4); Platelet Count 173 10^3/cmm (130-400); Red Blood Count 4.41 10^6/uL (4.1-5.3); Red Cell Distribution Width 14.6 % (12.1-15.1); White Blood Count 8.5 10^3/uL (4.0-10.0)
[2020-08-20 12:51] LABS: Absolute Eosinophils 0.1 10^3/cmm (0.0-0.7); Absolute Neutrophil 6.5 10^3/cmm (1.4-6.5); Absolute Segmented Neutrophil 6.4 10/cmm (1.6-7.1); Band Neutrophils Absolute 0.2 10^3/cmm (0.0-1.2); Eosinophils 2 %; Giant Platelets Trace; Lymphocytes 13 %; Monocytes Absolute 0.7 10^3/cmm (0.1-0.6); Platelet Estimate Normal (Normal); Segmented Neutrophils 75 %; Total Cells Counted 100 (0-100)
[2020-08-20 12:52] LABS: Anion Gap 15.9 (5-19); Blood Urea Nitrogen 8 mg/dL (8-23); Calcium 8.6 mg/dL (8.5-10.5); Carbon Dioxide 25 mmol/L (22-29); Chloride 100 mmol/L (98-107); Glucose 327 mg/dL (65-115); Magnesium 1.7 mg/dL (1.7-2.3); Osmolality Calculated 297 mOsm/kg (285-295); Phosphorus 2.8 mg/dL (2.5-4.5); Sodium 138 mmol/L (136-145)
[2020-08-20 12:55] LABS: Potassium 2.9 mmol/L (3.5-5.1)
--- NOTE | 2020-08-20 15:20 | P.PN_ITS ---
Subjective Subjective: Interval history: Ms. Ochoa is complaining of having a bad night, she was having difficulty with sleep. She was also complaining of stiff due to her longstanding RA. Which she has managed with traditional medications (currently she dont remember the name of those medicines ) Other than that she denies any other complaints. Vitals and labs have been reviewed. Medications: Reviewed: Yes Vitals/I&O/Wt Last Vital Signs Temp 98.5 F 08/20/20 13:44 Pulse 95 08/20/20 13:44 Resp 17 08/20/20 13:44 BP 92/64 08/20/20 13:44 Pulse Ox 95 08/20/20 01:25 08/20/20 08/20/20 08/20/20 06:59 14:59 22:59 Intake Total 0 / 682 530 / 530 Output Total 600 / 1200 Balance -600 / -518 530 / 530 Weight last 48 hrs Weight 53.116 kg Physical Exam HENMT: COMMON NORMALS: normocephalic and atraumatic HEAD & SCALP: normocephalic and atraumatic Chest: COMMONS NORMALS: normal inspection of the chest CHEST: Yes Symmetrical chest wall rise Resp: COMMON NORMALS: normal respiratory effort and clear to auscultation bilaterally EFFORT & INSPECTION: Yes symmetric chest movement AUSCULTATION: clear to auscultation bilaterally Cardio: COMMON NORMALS: regular rate, regular rhythm, S1 normal heart sound present, S2 normal heart sound present, No gallops present (Cardio), No murmurs present (Cardio), No rub (Cardio) and Peripheral pulses 2+ throughout RATE: regular rate RHYTHM: regular rhythm HEART SOUNDS: S1 normal heart sound present and S2 normal heart sound present PERIPHERAL PULSES: Peripheral pulses 2+ throughout OTHER: Sinus Tachycardia. Urinary Catheter Management^: Arizmendi: Cath Placed During This Visit: yes Reason for Continuing Indwelling Catheter: Accurate Measurement of Urinary Output in Critically Ill Patients Urinary Catheter Date of Insertion: 08/15/20 Urinary Catheter Time of Insertion: 17:43 Data : 08/20/20 12:18 08/20/20 12:18 A&P Assessment and plan (1) Sepsis: Status: Acute (2) UTI (urinary tract infection): Status: Acute (3) Acute encephalopathy: Status: Acute (4) DKA (diabetic ketoacidoses): Status: Acute (5) Diabetes: Status: Acute (6) Hypokalemia: Status: Acute (7) JIM (acute kidney injury): Status: Acute (8) Heart failure: Status: Acute (9) Hypernatremia: Status: Acute (10) Rheumatoid arthritis: Status: Acute Additional A&P Information 85-year-old female with unknown past medical history who is brought to emergency room due to altered mental status. She was found by her neighbors unresponsive on the floor. She has DKA, severe sepsis probably secondary to UTI with associated acute kidney injury. #Acute metabolic encephalopathy secondary to #2 and 3.( Resolved ) #DKA. ( Resolved ) It is unknown if the patient has history of diabetes. However it does not seem that she takes any diabetes medications. She will be admitted to ICU. We will start aggressive IV fluid management and IV insulin drip. We will check her c hemistry panel and magnesium level every 4 hours and adjust the fluids and electrolytes. Will need to be careful to monitor for any possible fluid overload. #Uncontrolled DM: Lantus 15 U SC DAILY BEDTIME Aspart 7 Us Premeal LDSSI. Had detailed discussion with the patient regarding Diabates management upon discharge. Provided her the information regarding Endocrine Service here at [facility]. She will provide us a name of a physician near her home.Who can manage her Diabetes as well as will serve as her PCP.She also wants to be discharged on oral Hypoglycemic medications. #Severe sepsis secondary to UTI. Blood cultures:Negative till date. urine culture: Negative procalctonin level.0.28 Lactic acid : 3.5--3--1.3 Initially on vancomycin and imipenem. Vancomcin was DC on 08/17 as initial prelim cultures have been negative. Imipeneam was discontinued on 08/18 Currently on ceftriaxone 1 gm q124h daily Hypokelemia :Monitor Serum K and Correct. #SOB On exertion and chest tightness : 2D Echo: Bad quality study: LV systolic function is grossly moderately reduced. Regional wall motion abnormalities cannot be assessed because of limited visualization. Repaet Limited ECHO with Contrast.LV systolic function is moderately reduced with EF of 35 to 40%.Mild to moderate global hypokinesis is present. No LV thrombus is seen. Consult cardiology ( Outpatient V/S Inpatient ) JIM :Resolved Physical deconditioning : PT / OT on board. DVT prophylaxis. Lovenox 40 mg sc daily GI prophylaxis famotidine. Code Status :Full code Disposition : Home Anticipated DC in 2 days Attestations Medical Necessity Statement*: Patient needs to be in hospital for the management UTI, Physical deconditioning, Coding Level of Care Code Acute Ball Assembler for Chg Fwd Exam Expanded Problem Focused Diagnoses Sepsis A41.9 UTI (urinary tract infection) N39.0 Acute encephalopathy G93.40 DKA (diabetic ketoacidoses) E11.10 Diabetes E11.9 Hypokalemia E87.6 JIM (acute kidney injury) N17.9 Heart failure I50.9 Hypernatremia E87.0 Rheumatoid arthritis M06.9
--- NOTE | 2020-08-20 17:12 | PC.NURSE ---
telephone instruction received from Dr Boyd to give 40 meq PO potassium chloride
[2020-08-20 17:20] LABS: Glucose Point of Care 217 mg/dL (70-110)
[2020-08-20] MEDS: potassium chloride ER 20 mEq Tablet 40 MEQ PO (17:49)
[2020-08-20 20:19] LABS: Glucose Point of Care 252 mg/dL (70-110)
[2020-08-20] MEDS: insulin glargine 100 units/1 mL 15 UNIT SUBCUT (21:00)
[2020-08-21] VITALS (11 sets, daily range): BP systolic 113–145; BP diastolic 57–72; PULSE 86–102; RESP 9–18; TEMP 36.1–36.8; O2SAT 92–97
[2020-08-21 06:36] LABS: Glucose Point of Care 196 mg/dL (70-110)
[2020-08-21] MEDS: famotidine 20 mg Tablet PO ×2 (08:52→17:48)
[2020-08-21] MEDS: lisinopril 20 mg Tablet PO (08:52)
[2020-08-21] MEDS: enoxaparin 40 mg/0.4 mL Syringe SUBCUT (08:52)
[2020-08-21] MEDS: cefTRIAXone 1,000 MG in sodium chloride 0.9% (plus) 50 ML 100 MG IV (08:53)
[2020-08-21 11:16] LABS: Glucose Point of Care 251 mg/dL (70-110)
[2020-08-21 16:18] LABS: Glucose Point of Care 277 mg/dL (70-110)
--- NOTE | 2020-08-21 17:25 | P.PN_ITS ---
Subjective Subjective: Interval history: is doing fine.She is participating in Physical therapy. Has remained afebrile.Other vitals and labs have been reviewed. Medications: Reviewed: Yes Vitals/I&O/Wt Last Vital Signs Temp 97.5 F L 08/21/20 15:01 Pulse 102 H 08/21/20 15:01 Resp 15 08/21/20 15:01 BP 115/57 08/21/20 15:01 Pulse Ox 93 08/21/20 15:01 08/21/20 08/21/20 08/21/20 06:59 14:59 22:59 Intake Total 0 / 820 480 / 480 Output Total 800 / 800 650 / 650 Balance -800 / 20 -170 / -170 Physical Exam Const: COMMON NORMALS: patient oriented x3 HENMT: COMMON NORMALS: normocephalic and atraumatic HEAD & SCALP: normocephalic and atraumatic Resp: COMMON NORMALS: normal respiratory effort and clear to auscultation bilaterally EFFORT & INSPECTION: Yes symmetric chest movement A USCULTATION: clear to auscultation bilaterally Cardio: COMMON NORMALS: regular rate, regular rhythm, S1 normal heart sound present, S2 normal heart sound present, No gallops present (Cardio), No murmurs present (Cardio), No rub (Cardio) and Peripheral pulses 2+ throughout RATE: regular rate RHYTHM: regular rhythm HEART SOUNDS: S1 normal heart sound pr esent and S2 normal heart sound present PERIPHERAL PULSES: Peripheral pulses 2+ throughout GI: COMMON NORMALS: Normal to inspection, nondistended, normoactive bowel sounds present, Soft to palpation, non-tender, No hepatosplenomegaly present and no masses AUSCULTATION: Yes normoactive bowel sounds PALPATION: Yes Soft to palpation and Yes No hepatosplenomegaly present RECTAL EXAM: deferred Extremity: COMMON NORMALS: no clubbing, cyanosis or edema and no pedal edema Neuro: COMMON NORMALS: patient oriented x3 Urinary Catheter Management^: Arizmendi: Cath Placed During This Visit: yes Reason for Continuing Indwelling Catheter: Accurate Measurement of Urinary Output in Critically Ill Patients Urinary Catheter Date of Insertion: 08/15/20 Urinary Catheter Time of Insertion: 17:43 Data : 08/20/20 12:18 08/20/20 12:18 Micro: Microbiology 08/15/20 16:03 Blood Culture - Final Blood NO GROWTH AFTER 5 DAYS 08/15/20 16:25 Blood Culture - Final Blood NO GROWTH AFTER 5 DAYS A&P Assessment and plan (1) Sepsis: Status: Acute (2) UTI (urinary tract infection): Status: Acute (3) Acute encephalopathy: Status: Acute (4) DKA (diabetic ketoacidoses): Status: Acute (5) Diabetes: Status: Acute (6) Hypokalemia: Status: Acute (7) JIM (acute kidney injury): Status: Acute (8) Rheumatoid arthritis: Status: Acute Additional A&P Information 85-year-old female with unknown past medical history who is brought to emergency room due to altered mental status. She was found by her neighbors unresponsive on the floor. She had DKA, severe sepsis probably secondary to UTI with associated acute kidney injury. #Acute metabolic encephalopathy secondary to #2 and 3.( Resolved ) #DKA. ( Resolved ) It is unknown if the patient has history of diabetes. However it does not seem that she takes any diabetes medications. She will be admitted to ICU. We will start aggressive IV fluid management and IV insulin drip. We will check her chemistry panel and magnesium level every 4 hours and adjust the fluids and electrolytes. Will need to be careful to monitor for any possible fluid overload. #Uncontrolled DM: Lantus 15 U SC DAILY BEDTIME Aspart 7 Us Premeal LDSSI. Had detailed discussion with the patient regarding Diabates management upon discharge. Provided her the information regarding Endocrine Service here at [facility]. She will provide us a name of a physician near her home.Who can manage her Diabetes as well as will serve as her PCP.She also wants to be discharged on oral Hypoglycemic medications. #Severe sepsis secondary to UTI. Blood cultures:Negative till date. urine culture: Negative procalctonin level.0.28 Lactic acid : 3.5--3--1.3 Initially on vancomycin and imipenem. Vancomcin was DC on 08/17 as initial prelim cultures have been negative. Imipeneam was discontinued on 08/18 ceftriaxone was dc on 08/21 # Hypokelemia :Monitor Serum K and Correct. #SOB On exertion and chest tightness : 2D Echo: Bad quality study: LV systolic function is grossly moderately reduced. Regional wall motion abnormalities cannot be assessed because of limited visualization. Repaet Limited ECHO with Contrast.LV systolic function is moderately reduced with EF of 35 to 40%.Mild to moderate global hypokinesis is present. No LV thrombus is seen. Patient will follow with her PCP to establish a cardiology as Outpatient. JIM :Resolved Physical deconditioning : PT / OT on board. DVT prophylaxis. Lovenox 40 mg sc daily GI prophylaxis famotidine. Code Status :Full code Disposition : Home Anticipated DC in 08/22 Attestations Medical Necessity Statement*: Patient needs to be in hospital for management of sepsis ,UTI, Coding Level of Care Code Acute Automatic Spinning Lathe Setter for g Fwd Exam Detailed Diagnoses Sepsis A41.9 UTI (urinary tract infection) N39.0 Acute encephalopathy G93.40 DKA (diabetic ketoacidoses) E11.10 Diabetes E11.9 Hypokalemia E87.6 JIM (acute kidney injury) N17.9 Rheumatoid arthritis M06.9
[2020-08-21] MEDS: insulin glargine 100 units/1 mL 15 UNIT SUBCUT (20:49)
--- NOTE | 2020-08-21 20:52 | PC.NURSE ---
PT IS RESTING IN BED. PT STATES THAT SHE DOESN'T KNOW HOW THEY FEEL, BUT THEY DON'T FEEL LIKE THEY ARE IN PAIN. PT IS CONFUSED. WILL CONTINUE TO MONITOR.
[2020-08-21 21:35] LABS: Glucose Point of Care 140 mg/dL (70-110)
--- NOTE | 2020-08-22 02:54 | PC.NURSE ---
PT HAD AN UNEVENTFUL NIGHT. PT DENIES PAIN. WILL CONTINUE TO MONITOR.
[2020-08-22 04:00] VITALS: BP 133/87; PULSE 99; RESP 14
[2020-08-22 08:00] VITALS: BP 138/73; PULSE 113; RESP 17; O2SAT 98
[2020-08-22 08:43] LABS: Glucose Point of Care 228 mg/dL (70-110)
[2020-08-22] MEDS: enoxaparin 40 mg/0.4 mL Syringe SUBCUT (09:12)
[2020-08-22] MEDS: lisinopril 20 mg Tablet PO (09:12)
[2020-08-22] MEDS: famotidine 20 mg Tablet PO (09:12)
--- NOTE | 2020-08-22 10:43 | PM.DCS ---
Discharge Providers Date of Admission: 08/15/20 18:37 Date of Discharge: August 22, 2020 Attending Provider at Admission: Refugio Blue Attending Provider at Discharge: Jozef Boyd MD Diagnoses at Discharge Discharge Diagnosis (1) Diabetes: Status: Chronic (2) Hypertension: Status: Chronic (3) Rheumatoid arthritis: Status: Chronic Reason for Visit Reason for Visit: FOUND ON FLOOR/ALOC Hospital Course Hospital Course 85-year-old female with past medical history of R.A is brought to emergency room due to altered mental status. She was found by her neighbors unresponsive on the floor. Upon arrival in the ER she was worked up for acute encephalopathy.CT head without contrast was negative for any acute intracranial pathology.Focal, well-circumscribed hypodensity in the left basal ganglia, consistent with chronic lacunar infarction. No CT evidence of acute intracranial hemorrhage or acute territorial infarction. No significant masseffect or midline shift. Basal cisterns patent Cerebral ventricles: Prominence of the cortical sulci, cisterns and ventricular system, consistent with cerebral and cerebellar volume loss. Further work-up revealed that she was in DKA as well as UTI. She was started on insulin drip later was transitioned to basal bolus insulin.Her HbA1c was : 15.7. Patient was given the option to go on insulin as her home medication given significantly elevated HbA1c.Patient prefers to be on oral hypoglycemics for now. She is being discharged on Metformin 500 mg p.o. daily. She was also managed for sepsis secondary to UTI. Initially she was started on Vanco and imipenem, later she was switched to ceftriaxone.Cultures were negative. She also had JIM on admission which was managed with IV hydration. JIM had resolved at the time of discharge. She was complaining of shortness of breath and chest tightness going on for long time. 2D echo was done: With and without contrast. As the initial 2D echo was of poor quality,LV systolic function is moderately reduced with EF of 35 to 40%.Mild to moderate global hypokinesis is present. No LV thrombus is seen.Given her history of uncontrolled diabetes as well as hypertension she will need to follow up with a tibco developer as outpatient for further work up.For her hypertension she is being discharged on lisinopril 20 mg p.o. daily. At the time of discharge patient was in stable condition.She is being discharged home and will continue to follow with the primary care as outpatient. Physical Exam Const: COMMON NORMALS: patient oriented x3 HENMT: COMMON NORMALS: normocephalic and atraumatic HEAD & SCALP: normocephalic and atraumatic Chest: CHEST: Yes Symmetrical chest wall rise Resp: COMMON NORMALS: normal respiratory effort and clear to auscultation bilaterally EFFORT & INSPECTION: Yes symmetric chest movement AUSCULTATION: clear to auscultation bilaterally Cardio: COMMON NORMALS: regular rate, regular rhythm, S1 normal heart sound present, S2 normal heart sound present, No gallops present (Cardio), No murmurs present (Cardio), No rub (Cardio) and Peripheral pulses 2+ throughout RATE: regular rate RHYTHM: regular rhythm HEART SOUNDS: S1 normal heart sound present and S2 normal heart sound present PERIPHERAL PULSES: Peripheral pulses 2+ throughout GI: COMMON NORMALS: Normal to inspection, nondistended, normoactive bowel sounds present, Soft to palpation, non-tender, No hepatosplenomegaly present and no masses AUSCULTATION: Yes normoactive bowel sounds PALPATION: Yes Soft to palpation and Yes No hepatosplenomegaly present RECTAL EXAM: deferred Extremity: COMMON NORMALS: no clubbing, cyanosis or edema and no pedal edema Neuro: COMMON NORMALS: patient oriented x3 Urinary Catheter Management^: Arizmendi: Cath Placed During This Visit: yes Reason for Continuing Indwelling Catheter: Accurate Measurement of Urinary Output in Critically Ill Patients Urinary Catheter Date of Insertion: 08/15/20 Urinary Catheter Time of Insertion: 17:43 Discharge Data Data Completed and Pending: Completed Studies During Hospitalization Category Date Time Status CT head wo con* 7 0450 Urgent Cat Scan 08/15/20 15:07 Completed XR chest 1V kaila ble [id number] Urgent Exams 08/15/20 15:07 Completed CV echo complete* [id number] Routine Ultrasound 08/17/20 12:03 Completed CV echo lmt wo/w contras [id number] Rout ine Ultrasound 08/18/20 18:39 Completed US/CV paperwork R outine Ultrasound 08/18/20 Completed Pending at discharge Category Date Time Status Urine Culture Sta t Lab 08/15/20 18:25 Uncollected Labs from last 24 hours 08/22/20 08/21/20 08/21/20 08:39 20:38 16:09 POC Glucose 228 H 140 H 277 H 08/21/20 10:51 POC Glucose 251 H Vitals: Last Vital Signs Temp 98.3 F 08/21/20 23:11 Pulse 113 H 08/22/20 08:00 Resp 17 08/22/20 08:00 BP 138/73 08/22/20 08:00 Pulse Ox 98 08/22/20 08:00 Discharge Plan Discharge Patient Disposition: Home Condition: Stable Prescriptions: New metformin 500 mg tablet extended release 24hr 500 mg PO DAILY Qty: 30 RF: 0 lisinopril 20 mg tablet 20 mg PO DAILY Qty: 30 RF: 0 (DME) Accu-Chek Guide Glucose Meter Misc See Rx Instructions .ROUTE .MEDSUPPLY Qty: 1 RF: 0 (DME) Accu-Chek Sally Plus test strp Strip See Rx Instructions .ROUTE .MEDSUPPLY Qty: 10 RF: 0 (DME) lancets 17 gauge misc See Rx Instructions .ROUTE .MEDSUPPLY Qty: 100 RF: 0 lanolin 50 % ointment 1 applic topical DAILY Qty: 15 RF: 0 Discharge Orders: Discharge Order (Routine); Ordered 08/22/20 Ordered By: Jozef Boyd Other Ambulatory Orders: DME: Walker (Order) Location: None Selected Ordered By: Jozef Boyd Referrals: Kendal Sotelo FNP [Nurse Practitioner] - 08/28/20 9:30 am Discharge Diet: Diabetic and Low Salt Discharge Activity: Increase activity as tolerated and Use walker/crutches as instructed Patient Instructions: Lisinopril (By mouth), Metformin (By mouth), Lanolin (On the skin), Heart Failure (DC), Acute Kidney Injury (DC), Urinary Tract Infection in Women (DC), Diabetic Ketoacidosis (DC), Diabetes Mellitus Type 2 in Adults (DC), Meal Planning with Diabetes Exchanges (DC), Sepsis (DC) Discharge Attestations Time Spent in Discharge Care*: greater than 30 min Specific Discharge Activities: educating patient, educating and/or supporting family/caregiver, discussing with employment evaluator/case manager/social workers/dc planners, documenting/other paperwork and evaluating patient/reviewing data Status at Discharge: Cognitive status at discharge: cognitively intact, Behavioral status at discharge: cooperative, Functional status at discharge: uses cane/walker Overall status at discharge: patient is back to baseline Quality Metrics Clinical Quality Measures During this hospital stay, did patient experience: None Coding Level of Care Code Acute Front Desk Receptionist for g Fwd Diagnoses Diabetes E11.9 Hypertension I10 Rheumatoid arthritis M06.9
[2020-08-22 11:26] VITALS: BP 111/68; PULSE 114; RESP 22; TEMP 36.3; O2SAT 95
[2020-08-22 11:59] LABS: Glucose Point of Care 162 mg/dL (70-110)
[2020-08-22 13:49] VITALS: BP 111/68; PULSE 114; RESP 22; TEMP 36.3; O2SAT 95
[2020-08-25 08:38] LABS: Glucose Point of Care 164 mg/dL (70-110)
== END 2020-08-22 13:50 | disposition home or self-care (01) | DRG 871 ==
LOC: ER 16:51 → MEDSURG 18:59 → ICU 20:13 → CSU 08-18 18:20
PROVIDERS: Internal Medicine; Admitting Provider Internal Medicine; Emergency Provider Family Medicine; Visit Provider Internal Medicine
DX: A41.9 Sepsis, unspecified organism (principal); E11.10 Type 2 diabetes mellitus with ketoacidosis without coma; G93.41 Metabolic encephalopathy; N39.0 Urinary tract infection, site not specified; N17.9 Acute kidney failure, unspecified; E87.0 Hyperosmolality and hypernatremia; R65.20 Severe sepsis without septic shock; T68.XXXA Hypothermia, initial encounter; E87.6 Hypokalemia; I50.9 Heart failure, unspecified; M06.9 Rheumatoid arthritis, unspecified; I11.0 Hypertensive heart disease with heart failure
CPT/HCPCS: 12345; 36415; 36416; 51702; 70450; 71045; 80048; 80053; 80069; 81001; 82009; 82550; 82962; 83036; 83605; 83735; 83880; 84100; 84145; 84443; 84484; 85007; 85025; 85027; 87040; 87081; 87086; 87426; 93005; 93306; 96372; 97116; 97161; 97530; 99283; C8924; J0696; J0743; J1644; J1650; J1815 ×2; J3370; J3480; J3490; J7030; J7050; Q9956

== ENCOUNTER → 2020-08-28 11:12 | Outpatient (BNVA) | payer MEDICARE, SELFPAY | PROVIDERS: Visit Provider Nurse Practitioner Family | DX: N39.0 Urinary tract infection, site not specified (principal); R31.9 Hematuria, unspecified | CPT/HCPCS: 81000; 87086 ==

== ENCOUNTER → 2020-09-05 14:53 | Outpatient (BNVA) | payer MEDICARE, SELFPAY | PROVIDERS: Visit Provider Nurse Practitioner Family | DX: E87.6 Hypokalemia (principal); E11.9 Type 2 diabetes mellitus without complications | CPT/HCPCS: 80048 ==

== ENCOUNTER → 2020-10-17 13:40 | Outpatient (BNVA) | payer MEDICARE, OTHER, SELFPAY | PROVIDERS: Visit Provider Nurse Practitioner Family | DX: E11.9 Type 2 diabetes mellitus without complications (principal); I10 Essential (primary) hypertension | CPT/HCPCS: 82043 ==

== ENCOUNTER → 2020-11-06 10:50 | Outpatient (BNVA) | payer MEDICARE, OTHER, SELFPAY | PROVIDERS: Visit Provider Nurse Practitioner Family | DX: E11.9 Type 2 diabetes mellitus without complications (principal) | CPT/HCPCS: 83036 ==

== ENCOUNTER → 2020-12-26 14:27 | Outpatient (BNVA) | payer MEDICARE, OTHER, SELFPAY | PROVIDERS: PCP Nurse Practitioner Family; Visit Provider Nurse Practitioner Family | DX: N30.01 Acute cystitis with hematuria (principal); E11.9 Type 2 diabetes mellitus without complications; B35.1 Tinea unguium | CPT/HCPCS: 81000; 87077; 87086; 87184 ==

== ENCOUNTER → 2021-01-10 11:28 | Outpatient (BNVA) | payer MEDICARE, OTHER, SELFPAY | PROVIDERS: PCP Nurse Practitioner Family; Visit Provider Nurse Practitioner Family | DX: N30.01 Acute cystitis with hematuria (principal) | CPT/HCPCS: 81000; 87086 ==

== ENCOUNTER → 2021-01-28 10:42 | Outpatient (BNVA) | payer MEDICARE, OTHER, SELFPAY | PROVIDERS: PCP Nurse Practitioner Family; Visit Provider Nurse Practitioner Family | DX: N30.01 Acute cystitis with hematuria (principal) | CPT/HCPCS: 87077; 87086; 87184 ==

== ENCOUNTER → 2021-02-12 14:39 | Outpatient (BNVA) | payer MEDICARE, OTHER, SELFPAY | PROVIDERS: PCP Nurse Practitioner Family; Visit Provider Nurse Practitioner Family | DX: N30.01 Acute cystitis with hematuria (principal) | CPT/HCPCS: 87086 ==

== ENCOUNTER → 2021-07-24 11:12 | Outpatient (BNVA) | payer MEDICARE, OTHER, SELFPAY | PROVIDERS: PCP Nurse Practitioner Family; Visit Provider Nurse Practitioner Family | DX: I10 Essential (primary) hypertension (principal); E11.9 Type 2 diabetes mellitus without complications | CPT/HCPCS: 80053; 83036 ==

== ENCOUNTER → 2021-08-07 10:18 | Outpatient (BNVA) | payer MEDICARE, OTHER, SELFPAY | PROVIDERS: PCP Nurse Practitioner Family; Visit Provider Nurse Practitioner Family | DX: E11.9 Type 2 diabetes mellitus without complications (principal) | CPT/HCPCS: 82043 ==

== ENCOUNTER → 2022-01-17 10:24 | Outpatient (BNVA) | payer MEDICARE, OTHER, SELFPAY | PROVIDERS: PCP Nurse Practitioner Family; Visit Provider Nurse Practitioner Family | DX: E11.42 Type 2 diabetes mellitus with diabetic polyneuropathy (principal); I10 Essential (primary) hypertension | CPT/HCPCS: 80053; 80061; 83036 ==

== ENCOUNTER → 2022-01-21 10:57 | Outpatient (BNVA) | payer MEDICARE, OTHER, SELFPAY | PROVIDERS: PCP Nurse Practitioner Family; Visit Provider Nurse Practitioner Family | DX: E11.9 Type 2 diabetes mellitus without complications (principal); N30.01 Acute cystitis with hematuria; N39.0 Urinary tract infection, site not specified | CPT/HCPCS: 81000; 82043 ==

== ENCOUNTER → 2022-02-19 13:58 | Outpatient (BNVA) | payer MEDICARE, OTHER, SELFPAY | PROVIDERS: PCP Nurse Practitioner Family; Visit Provider Nurse Practitioner Family | DX: N39.0 Urinary tract infection, site not specified (principal); R31.9 Hematuria, unspecified; E11.9 Type 2 diabetes mellitus without complications; N30.01 Acute cystitis with hematuria | CPT/HCPCS: 81000; 87077; 87086; 87184 ==

== ENCOUNTER → 2022-03-13 11:15 | Outpatient (BNVA) | payer MEDICARE, OTHER, SELFPAY | PROVIDERS: PCP Nurse Practitioner Family; Visit Provider Nurse Practitioner Family | DX: R31.9 Hematuria, unspecified (principal); N39.0 Urinary tract infection, site not specified | CPT/HCPCS: 81000; 87077; 87086; 87184 ==

== ENCOUNTER → 2022-03-26 13:01 | Outpatient (BNVA) | payer MEDICARE, OTHER, SELFPAY | PROVIDERS: PCP Nurse Practitioner Family; Visit Provider Nurse Practitioner Family | DX: R31.9 Hematuria, unspecified (principal); N39.0 Urinary tract infection, site not specified | CPT/HCPCS: 87077; 87086; 87184 ==

== ENCOUNTER → 2022-04-30 13:20 | Outpatient (BNVA) | payer MEDICARE, OTHER, SELFPAY | PROVIDERS: PCP Nurse Practitioner Family; Visit Provider Nurse Practitioner Family | DX: R31.9 Hematuria, unspecified (principal); E11.9 Type 2 diabetes mellitus without complications; I10 Essential (primary) hypertension; N39.0 Urinary tract infection, site not specified | CPT/HCPCS: 80053; 81000; 81003; 83036; 87077; 87086; 87184 ==

== ENCOUNTER → 2022-05-27 13:47 | Outpatient (BNVA) | payer MEDICARE, OTHER, SELFPAY | PROVIDERS: PCP Nurse Practitioner Family; Visit Provider Nurse Practitioner Family | DX: N39.0 Urinary tract infection, site not specified (principal); R39.9 Unspecified symptoms and signs involving the genitourinary system; E11.9 Type 2 diabetes mellitus without complications | CPT/HCPCS: 81000; 87077; 87086; 87184 ==

== ENCOUNTER 2022-12-17 12:00 | Outpatient (CLI) | payer MEDICARE, OTHER, SELFPAY ==
[2022-12-17 13:24] LABS: Anion Gap 18.2 (5-19); Blood Urea Nitrogen 21 mg/dL (8-23); Calcium 9.7 mg/dL (8.5-10.5); Carbon Dioxide 23 mmol/L (22-29); Chloride 102 mmol/L (98-107); Glucose 122 mg/dL (65-115); Osmolality Calculated 292 mOsm/kg (285-295); Potassium 4.2 mmol/L (3.5-5.1); Sodium 139 mmol/L (136-145)
== END 2022-12-17 12:01 | disposition home or self-care (01) ==
LOC: LAB 12:06
PROVIDERS: PCP Nurse Practitioner Family; Visit Provider Thoracic Surgery (Cardiothoracic Vascular Surgery)
DX: E11.9 Type 2 diabetes mellitus without complications (principal); I73.9 Peripheral vascular disease, unspecified
CPT/HCPCS: 36415; 80048; 99213

== ENCOUNTER → 2022-12-24 09:25 | Outpatient (BNVA) | payer MEDICARE, OTHER, SELFPAY | PROVIDERS: PCP Nurse Practitioner Family; Visit Provider Thoracic Surgery (Cardiothoracic Vascular Surgery) | DX: I96 Gangrene, not elsewhere classified (principal); E11.621 Type 2 diabetes mellitus with foot ulcer; L97.512 Non-pressure chronic ulcer of other part of right foot with fat layer exposed | CPT/HCPCS: 11042 ==

== ENCOUNTER → 2022-12-31 10:39 | Outpatient (BNVA) | payer MEDICARE, OTHER, SELFPAY | PROVIDERS: PCP Nurse Practitioner Family; Visit Provider Thoracic Surgery (Cardiothoracic Vascular Surgery) | DX: Z09 Encounter for follow-up examination after completed treatment for conditions other than malignant neoplasm (principal); Z87.828 Personal history of other (healed) physical injury and trauma | CPT/HCPCS: 99212 ==

== ENCOUNTER → 2023-06-03 10:08 | Outpatient (BNVA) | payer MEDICARE, OTHER, SELFPAY | PROVIDERS: PCP Nurse Practitioner Family; Visit Provider Nurse Practitioner Family | DX: E11.42 Type 2 diabetes mellitus with diabetic polyneuropathy (principal); I10 Essential (primary) hypertension | CPT/HCPCS: 80053; 80061; 83036 ==

== ENCOUNTER → 2024-05-19 11:22 | Outpatient (BNVA) | payer MEDICARE, OTHER, SELFPAY | PROVIDERS: PCP Nurse Practitioner Family; Visit Provider Nurse Practitioner Family | DX: I10 Essential (primary) hypertension (principal); E11.9 Type 2 diabetes mellitus without complications | CPT/HCPCS: 80053; 80061; 83036 ==

== ENCOUNTER → 2025-05-24 10:32 | Outpatient (BNVA) | payer MEDICARE, OTHER, SELFPAY | PROVIDERS: PCP Nurse Practitioner Family; Visit Provider Nurse Practitioner Family | DX: I10 Essential (primary) hypertension (principal); E11.9 Type 2 diabetes mellitus without complications | CPT/HCPCS: 80053; 80061; 83036 ==